=== PATIENT | male | born 1945 | race Caucasian/White ===

== ENCOUNTER 2020-03-15 15:24 | Outpatient (CLI) | payer MEDICARE, OTHER, SELFPAY ==
--- NOTE | 2020-03-15 15:36 | XR_ITS ---
WS: [id number] RIGHT HIP HISTORY: RIGHT HIP PAIN COMPARISON: None available. Right hip: No acute fracture or dislocation. Moderate to severe narrowing of the hip joint. Near bone upon bone along the superior joint line. Sclerosis with cortical irregularity. Subchondral cystic ch anges are noted along the acetabulum. XR/XR hip RT 2-3V wo/w pel* [id number] IMPRESSION: 1. No hip fracture. 2. Moderate to severe RIGHT hip joint osteoarthritis.
== END 2020-03-15 15:25 | disposition home or self-care (01) ==
LOC: RADWPI 15:33
PROVIDERS: Family Provider Family Medicine; PCP Family Medicine; Visit Provider Family Medicine
DX: M16.11 Unilateral primary osteoarthritis, right hip (principal)
CPT/HCPCS: 73502

== ENCOUNTER 2020-05-09 06:50 | Outpatient (CLI) | payer MEDICARE, OTHER, SELFPAY ==
[2020-05-09 07:09] VITALS: BMI 26.6
--- NOTE | 2020-05-09 07:09 | NMCV_ITS ---
NM dung perf SPECT r/s* [id number] Oj Haider Age: 75 Gender: M : 1945 Exam Date: 05/09/2020 07:48 Ordering Phys: Jose Gonzalez MD Technologist: NANCY Zapata Exam Location: [facility] Indications: CAD STRESS TEST Please see separate stress test report in [facility]any for full findings IMAGE PROTOCOL Rest/Stress 1 Lexiscan Day Radiopharmaceutical Dose (mCi) Administration Site Administered by Rest: Tc-99m 10.8 IV NANCY Bolaños Sestamibi Stress:Tc-99m 32.4 IV NANCY Zapata Sestamibi Rest: 05/09/2020 60 Discovery 630 Stress: 05/09/2020 30 Discovery 630 0.4mg Lexiscan. Images obtained in supine and prone position. SPECT RESULTS Technical Quality: Excellent Raw Data Analysis: Normal Image Corrections: No attenuation or motion correction applied Summed Stress Score: 6 Summed Rest Score: 2 Summed Difference Score: 4 PERFUSION FINDINGS Small size perfusion abnormality of mild severity of mid inferolateral and apical lateral wall on rest images with mild reversibility in mid inferolateral wall and apical lateral kang on stress images. FUNCTIONAL RESULTS (calculated via Gated SPECT) Stress Image LV EF (%): 65 Stress EDV (mL):74 TID: 1 Stress ESV (mL):26 FUNCTIONAL FINDINGS: The left ventricle is normal in size. Transient Ischemia Dilatation of 1. There is normal left ventricular systolic function. The left ventricular ejection fraction is normal with a value of 65%. There is normal left ventricular wall thickening. Normal end-diastolic and end-systolic volumes. IMPRESSIONS 1. Small sized reversible perfusion abnormality of moderate severity of mid inferolateral and apical lateral kang. 2. This is suggestive of small area of ischemia in circumflex artery territory. 3. Overall left ventricular systolic function is normal without regional wall motion abnormalities. 4. The left ventricular ejection fraction is normal with a value of 65%. 5. No prior similar studies to compare. Rachel Nicole MD (Electronically Signed) Final Date: 09 May 2020 14:43 S
--- NOTE | 2020-05-09 07:09 | ECG_ITS ---
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 Interpretive Statements NAME OF STUDY: LEXISCAN SESTAMIBI STRESS TEST INDICATION: CAD; ; CAD; , PROCEDURE: At the baseline, the EKG revealed normal sinus rhythm with some nonspecific ST changes. The baseline blood pressure was 158/91 mm Hg with a heart rate of 70 beats/min. Lexiscan was infused over a period of 20 seconds. A total of 0.4 milligrams of Lexiscan was infused. The stress phase was continued for a total of 5 minutes. Heart rate at the end of the stress phase was 81 with a blood pressure was not obtained. The EKG at the peak infusion revealed no significant changes. Sestamibi was injected 20 seconds after the Lexiscan infusion. Blood pressure at the end of the recovery phase was was not obtained with a heart rate of 78 per minute. CONCLUSION: 1. No significant EKG changes with the LexiScan infusion 2. No LexiScan induced chest pain or cardiac arrhythmia 3. Normal blood pressure and heart rate response 4. Sestamibi/sestamibi perfusion scan pending; see separate report. Electronically Signed On 05-13-2020 17:39:45 CDT by Martha Faustin M.D. [email or web address]
[2020-05-09] MEDS: regadenoson 0.4 Mg/5 ml Syringe IVP (08:35)
[2020-05-09 08:54] VITALS: BP 155/85; PULSE 81
== END 2020-05-09 06:51 | disposition home or self-care (01) ==
PROVIDERS: PCP Family Medicine; Visit Provider Family Medicine
DX: Z13.6 Encounter for screening for cardiovascular disorders (principal); I25.10 Atherosclerotic heart disease of native coronary artery without angina pectoris
CPT/HCPCS: 73502; 78452; 93017; A9500; J2785

== ENCOUNTER 2020-05-16 09:07 | Outpatient (CLI) | payer MEDICARE, OTHER, SELFPAY ==
--- NOTE | 2020-05-16 09:11 | USCV_ITS ---
Meliza Oj Age: 75 Gender: M : 1945 Exam Date: 05/16/2020 09:37 Ordering Phys: Jose Gonzalez MD Technologist: Neisha Cotter Exam Location: [facility] [place] Indication: SCREENING FOR ISCHEMIC HEART DX CAD DYSPNEA BP: 130 / 70 HR: 69 Rhythm: Sinus Technical Quality: Adequate MEASUREMENTS (Male / Female) Normal Values 2D ECHO LV Diastolic Diameter PLAX 4.8 cm 4.2 - 5.9 / 3.9 - 5.3 cm LV Systolic Diameter PLAX 3.3 cm LV Chamber Size 2.4 cm IVS Diastolic Thickness 1.2 cm 0.6 - 1.0 / 0.6 - 0.9 cm IVS Systolic Thickness 1.5 cm LVPW Diastolic Thickness 1.1 cm 0.6 - 1.0 / 0.6 - 0.9 cm LVPW Systolic Thickness 2.0 cm RV Chamber Size 2.5 cm LVOT Diameter 2.1 cm LV Ejection Fraction 2D Teich 59.4 % LV Ejection Fraction MOD 2C 58.4 % LV Ejection Fraction 2C AL 60.2 % LA Diameter 3.8 cm LA Width 2.5 cm LA Height 3.7 cm RA Width 2.7 cm RA Height 3.9 cm Aorta at Sinotubular Diameter 3.5 cm M-MODE LV Diastolic Diameter MM 4.4 cm 4.2 - 5.9 / 3.9 - 5.3 cm LV Systolic Diameter MM 3.0 cm LV Ejection Fraction MM Teich 61.4 % IVS Diastolic Thickness MM 1.3 cm 0.6 - 1.0 / 0.6 - 0.9 cm IVS Systolic Thickness MM 1.4 cm LVPW Diastolic Thickness MM 1.1 cm 0.6 - 1.0 / 0.6 - 0.9 cm LVPW Systolic Thickness MM 1.6 cm RV Diastolic Diameter MM 1.6 cm Aortic Annulus Diameter 4.2 cm LA Ao Ratio MM 0.9 MV E Point Septal Separation 0.5 cm DOPPLER AV Peak Velocity 94.0 cm/s LVOT Peak Velocity 81.0 cm/s AV Area Cont Eq vti 3.2 cm squared AV Area Cont Eq pk 2.9 cm squared MV Area PHT 4.2 cm squared Mitral E to A Ratio 0.9 MV E' Velocity 61.0 cm/s TR Peak Velocity 226.5 cm/s TR Peak Gradient 20.5 mmHg TR Mean Velocity 158.2 cm/s TR Mean Gradient 12.1 mmHg TR Velocity Time Integral 74.5 cm TV Peak E Velocity 89.0 cm/s Right Atrial Pressure 3.0 mmHg Pulmonary Artery Systolic Pressu 23.5 mmHg PV Peak Velocity 55.0 cm/s RV Acceleration Time 0.1 s RV Ejection Time 0.4 s RV AcT/ET 0.4 FINDINGS Left Ventricle Normal left ventricular size and systolic function with no regional wall motion abnormalities. LVEF is 55 to 60%. Mild LVH is present. Grade 1 diastolic dysfunction is noted. Right Ventricle The right ventricle is normal in size and function. Right Atrium The right atrium is normal in size. Left Atrium The left atrium is normal in size. Mitral Valve Structurally normal mitral valve without significant stenosis or prolapse. There is no mitral regurgitation. Aortic Valve Structurally normal aortic valve without significant sclerosis or stenosis. There is mild aortic regurgitation. Tricuspid Valve Structurally normal tricuspid valve without significant stenosis. Mild tricuspid regurgitation is noted. RVSP is 20 to 25 mmHg. Pulmonic Valve Structurally normal pulmonic valve without significant stenosis. There is trace pulmonic regurgitation. Pericardium Normal pericardium without effusion. Aorta Borderline dilated aortic root CONCLUSIONS LV systolic function is normal with EF of 55 to 60%. Grade 1 diastolic dysfunction. Mild aortic regurgitation, mild tricuspid regurgitation and trace pulmonic regurgitation noted. Normal RVSP of 20 to 25 mmHg Juanito Alvarez MD (Electronically Signed) Final Date: 16 May 2020 15:50 S
== END 2020-05-16 09:08 | disposition home or self-care (01) ==
LOC: US 09:08
PROVIDERS: PCP Family Medicine; Visit Provider Family Medicine
DX: Z13.6 Encounter for screening for cardiovascular disorders (principal); M25.551 Pain in right hip; R06.00 Dyspnea, unspecified; I35.1 Nonrheumatic aortic (valve) insufficiency; I07.1 Rheumatic tricuspid insufficiency
CPT/HCPCS: 93306

== ENCOUNTER 2020-07-26 06:00 | Outpatient (RCR) | payer MEDICARE, OTHER, SELFPAY | END 2020-08-18 23:59 | disposition home or self-care (01) | LOC: SPT 06:00 | PROVIDERS: PCP Family Medicine; Referring Provider Orthopaedic Surgery; Visit Provider Orthopaedic Surgery | DX: Z47.1 Aftercare following joint replacement surgery (principal); Z96.641 Presence of right artificial hip joint | CPT/HCPCS: 97161 ==

== ENCOUNTER 2021-03-27 07:52 | Outpatient (CLI) | payer MEDICARE, OTHER, SELFPAY ==
--- NOTE | 2021-03-27 | MR_ITS ---
WS: [id number] MR VENOGRAPHY WITHOUT GADOLINIUM ENHANCEMENT. INDICATION: Pulsatile tinnitus TECHNIQUE: [id number] MR venogram. Into the projection images. FINDINGS: Normal sagittal sinus. Transverse sinuses are normal. Normal sigmoid sinuses. Normal straig ht sinus and internal cerebral veins. No evidence of dural sinus thrombosis. No other significant fin dings. MR/[place] [id number] IMPRESSION: Normal MR venogram
--- NOTE | 2021-03-27 07:58 | MR_ITS ---
WS: [id number] MRA HEAD TECHNIQUE: Axial 3-D TOF images obtained with axial images and axial, sagittal, and coronal 2-D refor matted images. CLINICAL INFORMATION: PULSATILE TINNITUS LEFT EAR COMPARISON: None. FINDINGS: Distal vertebral arteries are patent. Basilar artery is patent. Normal vascularity to the WATERSHED COORDINATOR territo ry bilaterally. Both ICAs are patent the skull base. Small A1 segments. Patent anterior communicating artery. Normal vascularity to the MONAE and MCA territories bilaterally. No evidence of high-grade proximal stenosis o r aneurysm. Normal petrous and cavernous carotid ICA segments. Patent right posterior communicating a rtery. MR/MR angio head wo con [id number] IMPRESSION: Normal intracranial MRA.
--- NOTE | 2021-03-27 09:11 | CT_ITS ---
WS: [id number] CT TEMPORAL BONES WITHOUT CONTRAST HISTORY: PULSATILE TINNITUS, LEFT EAR TECHNIQUE: Axial 1.25 mm imaging is performed through the temporal bones. High resolution 0.63 mm ref ormats were then submitted in axial, coronal and sagittal planes. DLP: 619.[address] scans at [facility] use at least one of these dose optimization techniques: automat ed exposure control; mA and/or kV adjustment per patient size (includes targeted exams where dose is matched to clinical indication); or iterative reconstruction. COMPARISON: None available. Expansile soft tissue mass is suspected along the LEFT petrous apex. There is marked thinning and rem odeling of the bone. There is partial dehiscence of the bony cortex. The soft tissue abnormality sona ures about 1.5 x 0.9 cm and extends to abut the posterior surface of the carotid artery. There is deh iscence and thinning of the bony wall of the posterior LEFT carotid. This is asymmetric to the RIGHT petrous apex. There is mild bulging of the soft tissue mass into the aerated petrous ridge. No abnormality is noted within the mastoid air cells or surrounding the inner ear ossicles. There is no increased soft tissue along the internal or external auditory canals. Atherosclerotic calcifications are noted within the cavernous and supraclinoid carotid arteries. No induration or displacement of the parapharyngeal fat. External and internal auditory canals are ne gative. CT/CT temporal bone wo con* [id number] IMPRESSION: 1. Expansile soft tissue mass centered along the LEFT petrous apex with dehisc ence, expansion and thinning of the bone. Mass measures 1.5 x 0.9 cm. Recommend follow-up imaging by MRI brain with and without contrast. Favor this is most l ikely a cholesteatoma. Differential would include petrous apex mucocele. 2. Inner ear ossicles are negative.
== END 2021-03-27 07:53 | disposition home or self-care (01) ==
LOC: RADSHAW 07:56
PROVIDERS: PCP Family Medicine; Visit Provider Specialist
DX: H93.A2 Pulsatile tinnitus, left ear (principal); R22.0 Localized swelling, mass and lump, head
CPT/HCPCS: 70480; 70544

== ENCOUNTER 2021-04-04 09:27 | Outpatient (CLI) | payer MEDICARE, OTHER, SELFPAY ==
--- NOTE | 2021-04-04 09:35 | USCV_ITS ---
Meliza Oj Age: 75 Gender: M : 1945 Exam Date: 04/04/2021 09:54 Ordering Phys: Jose Gonzalez MD Technologist: Steffi Pearson Exam Location: [facility] [place] Indication: BRUIT Risk Factors: Previous Vascular Surgery: Right Brachial BP: / Left Brachial BP: / Right Left Velocity (cm/s) Spectral Plaque Velocity (cm/s) Spectral Plaque Syst/Diast Broadening Syst/Diast Broadening 105.70/11.60 Prox CCA 74.90 / 14.80 69.10/ 14.80 Mid CCA 77.70 / 14.80 46.50/ 12.70 Distal CCA 66.80 / 18.60 398.50/130.40 Prox ICA 388.40/ 133.60 119.60/51.30 Mid ICA 165.50/ 34.40 77.70/ 20.20 Distal ICA 110.00/ 31.40 84.70 ECA 87.80 3.77 ICA/CCA 5.00 Antegrade Vertebral Antegrade 63.70/ 21.00 cm/s 26.20/ 26.20 cm/s Tri Subclavian Tri 166.2 120.1 0 0 FINDINGS Comparison: none available. Significant elevation of systolic and diastolic velocities in the ICA's. Abnormal waveforms and ratios. Extensive plaque with tortuous vessels. CONCLUSIONS Right ICA stenosis 70-99%. Left ICA stenosis 70-99%. Report called at time of exam to ordering physician. Dr. Maite Posada DO (Electronically Signed) Final Date: 04 April 2021 10:19 S
== END 2021-04-04 09:28 | disposition home or self-care (01) ==
LOC: US 09:31
PROVIDERS: PCP Family Medicine; Visit Provider Family Medicine
DX: R09.89 Other specified symptoms and signs involving the circulatory and respiratory systems (principal); I65.23 Occlusion and stenosis of bilateral carotid arteries
CPT/HCPCS: 93880

== ENCOUNTER 2021-04-07 08:11 | Outpatient (CLI) | payer MEDICARE, OTHER, SELFPAY ==
--- NOTE | 2021-04-07 | CT_ITS ---
WS: [id number] CT scan of the carotid arteries of the neck. Additional two-dimensional coronal and sagittal reconstr uction was performed. MIP images were also performed. 04/07/2021 Clinical Data: CAROTID STENOSIS Comparison: Bilateral carotid Doppler ultrasound, 04/04/2021 DLP: 996.[address] scans at [facility] use at least one of these dose optimization techniques: automat ed exposure control; mA and/or kV adjustment per patient size (includes targeted exams where dose is matched to clinical indication); or iterative reconstruction. Findings: The right carotid artery bifurcates normally into the internal and external carotid arteries and ther e is significant calcification at the bifurcation. There is stenosis of 87% on the right. The left common carotid artery bifurcates into the internal and external carotid arteries and there i s a significant stenosis of 78%. The vertebral arteries are normal and equivalent in size. The intracerebral circulation is only partly seen but it shows no obvious abnormalities. The soft tissues of neck show no lymphadenopathy. There is no prevertebral soft tissue swelling. The oropharynx, hypopharynx and proximal trachea are not remarkable. The larynx is symmetric. The cervica l spine shows osteoarthritis and multiple disc level narrowing. No compression fractures are seen. Th e intraorbital contents, internal auditory canals, sella turcica, paranasal sinuses and mastoid air c ells show no abnormalities. CT/CT angio neck [id number] Impression: 1. Stenosis of 87% of the right internal carotid artery origin. 2. Stenosis of 78% of the origin of the left internal carotid artery.
[2021-04-07] MEDS: iodixanol 320 mg/mL 100mL Btl IV (08:52)
== END 2021-04-07 08:12 | disposition home or self-care (01) ==
PROVIDERS: PCP Family Medicine; Visit Provider Family Medicine
DX: I65.23 Occlusion and stenosis of bilateral carotid arteries (principal)
CPT/HCPCS: 70498; Q9967

== ENCOUNTER 2021-08-16 15:37 | Outpatient (CLI) | payer MEDICARE, OTHER, SELFPAY ==
--- NOTE | 2021-08-16 | CTR_ITS ---
PROCEDURE INFORMATION: Exam: CTA Chest With Contrast Exam date and time: 08/16/2021 4:12 PM Age: 76 years old Clinical indication: Shortness of breath; Additional info: R/O pe TECHNIQUE: Imaging protocol: Computed tomographic angiography of the chest with contrast. 3D rendering (Not supervised by radiologist): MIP and/or 3D reconstructed images were created by the technologist. Radiation optimization: All CT scans at this facility use at least one of these dose optimization techniques: automated exposure control; mA and/or kV adjustment per patient size (includes targeted exams where dose is matched to clinical indication); or iterative reconstruction. Contrast material: OMNI 350; Contrast volume: 71 ml; Contrast route: INTRAVENOUS (IV); COMPARISON: CR Chest 2 views* [id number] 01/17/2017 12:42 PM RADIATION DOSE METRICS: Total DLP (mGy-cm): 585.77 FINDINGS: Pulmonary arteries: No pulmonary embolus or aortic dissection. Aorta: Calcification of the thoracic aorta and/or great vessels consistent with atherosclerotic vessel disease. Other arteries: Direct origin of the left vertebral artery from the aortic arch which is a normal variant seen in 1% of the population. Lungs: Interstitial opacities in the anterior mid lung davey bilaterally consistent with interstitial pneumonitis versus fibrosis. Mild centrilobular emphysema. Pleural spaces: Unremarkable. No pneumothorax. No pleural effusion. Heart: Unremarkable. No cardiomegaly. No pericardial effusion. Lymph nodes: Borderline mediastinal adenopathy which may be reactive. Calcified right hilar nodes and/or mediastinal nodes and/or lung granulomas consistent with old granulomatous disease. Gallbladder and bile ducts: Contracted gallbladder. Bones/joints: Moderate thoracic spondylosis. Mild thoracic spondylosis. Soft tissues: Unremarkable. CT/CT angio chest PE protcl [id number] IMPRESSION: 1. Interstitial opacities in the anterior mid lung davey bilaterally consistent with interstitial pneumonitis versus fibrosis. 2. Borderline mediastinal adenopathy which may be reactive. 3. No pulmonary embolus or aortic dissection.
== END 2021-08-16 15:38 | disposition home or self-care (01) ==
LOC: RAD 15:40
PROVIDERS: PCP Family Medicine; Visit Provider Family Medicine
DX: R07.9 Chest pain, unspecified (principal); R06.00 Dyspnea, unspecified
CPT/HCPCS: 71275; Q9967

== ENCOUNTER → 2021-08-29 16:28 | Outpatient (BNVA) | payer MEDICARE, OTHER, SELFPAY | PROVIDERS: PCP Family Medicine; Visit Provider Surgery Vascular Surgery | DX: Z01.812 Encounter for preprocedural laboratory examination (principal); Z20.822 Contact with and (suspected) exposure to COVID-19 | CPT/HCPCS: 87635 ==

== ENCOUNTER → 2021-11-08 11:37 | Outpatient (BNVA) | payer MEDICARE, OTHER, SELFPAY | PROVIDERS: PCP Family Medicine; Visit Provider Internal Medicine | DX: R00.0 Tachycardia, unspecified (principal); I49.3 Ventricular premature depolarization; I49.1 Atrial premature depolarization | CPT/HCPCS: 93225 ==

== ENCOUNTER 2022-01-03 07:46 | Outpatient (CLI) | payer MEDICARE, OTHER, SELFPAY ==
[2022-01-03 08:12] VITALS: BMI 27.4
--- NOTE | 2022-01-03 08:12 | ECG_ITS ---
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 Interpretive Statements NAME OF STUDY: EXERCISE SESTAMIBI STRESS TEST INDICATION: Chest Pain, Central; Dyspnea on Exertion Baseline blood pressure of 157/105 mm Hg, heart rate 81 beats per minute. EKG showed normal sinus rhythm, normal axis with poor anterior R wave progression. The patient exercised for 7 minutes 12 seconds on a standard Omar protocol. Patient attained a maximum heart rate of 142 beats per minute(99% of the maximum predicted heart rate) with a blood pressure at the peak exercise of 175/98 mm Hg. The EKG at the peak exercise revealed sinus tachycardia with half to [address] depression in lateral leads. Patient did not have any chest pain or any significant arrhythmis with the exercise During the recovery phase, ST depression and T wave inversion is noted in lead I and aVL. Blood pressure at the end of the recovery phase was 170/98 mm Hg with a heart rate of 85 beats per minute and oxygen saturation 97%. CONCLUSION: 1. Equivocal EKG response to treadmill exercise. 2. No exercise-induced chest pain or cardiac arrhythmia. 3. Excellent exercise tolerance, attained a maximum of 10.2 METs. Maximum VO2 of 35.7 mL/kg/min. 4. Baseline hypertension with normal response to exercise. 5. Perfusion scan will be documented separately. Electronically Signed On 01-08-2022 17:33:44 CDT by Rachel Nicole M.D. [id number]
--- NOTE | 2022-01-03 08:13 | NMCV_ITS ---
NM dung perf SPECT r/s* [id number] Oj Haider Age: 76 Gender: M : 1945 Exam Date: 01/03/2022 09:12 Ordering Phys: Jose Gonzalez MD Technologist: NANCY Zapata Exam Location: [facility] Indications: CHEST PAIN, DYSPNEA STRESS TEST Please see separate stress test report in [facility]any for full findings IMAGE PROTOCOL Rest/Stress 1 Exercise Day Radiopharmaceutical Dose (mCi) Administration Site Administered by Rest: Tc-99m 10.8 IV NANCY Bolaños Sestamibi Stress:Tc-99m 32.7 IV NANCY Bolaños Sestamibi Rest: 03-Jan-2022 60 Discovery 630 Stress: 03-Jan-2022 15 Discovery 630 Radiopharmaceutical was injected at 95 % maximum heart rate. Images obtained in supine and prone position. SPECT RESULTS Technical Quality: Excellent Raw Data Analysis: Normal Image Corrections: No attenuation or motion correction applied Summed Stress Score: 8 Summed Rest Score: 1 Summed Difference Score: 7 PERFUSION FINDINGS Small sized reversible perfusion abnormality of mild severity of basal inferolateral, mid to apical lateral kang on stress images. FUNCTIONAL RESULTS (calculated via Gated SPECT) Stress Image LV EF (%): 74 Stress EDV (mL):77 TID: 0.96 Stress ESV (mL):20 FUNCTIONAL FINDINGS: The left ventricle is normal in size. Transient Ischemia Dilatation of 0.96. There is normal left ventricular systolic function. The left ventricular ejection fraction is normal with a value of 74%. There is normal left ventricular wall thickening with no regional wall abnormality. IMPRESSIONS 1. Small sized reversible perfusion abnormality of mild severity of basal inferolateral, mid to apical lateral kang. 2. This may represent small area of ischemia in circumflex artery territory. 3. Overall left ventricular systolic function is normal without regional wall motion abnormalities, LVEF=74%. 4. EKG portion of the study will be reported separately. 5. No significant change when compared to previous study dated 05/09/2020. Rachel Nicole MD (Electronically Signed) Final Date: 08 Jan 2022 08:07 S
[2022-01-03 11:03] VITALS: BP 170/98; PULSE 82
== END 2022-01-03 07:47 | disposition home or self-care (01) ==
LOC: CDL 07:49
PROVIDERS: PCP Family Medicine; Visit Provider Family Medicine
DX: R07.9 Chest pain, unspecified (principal); R06.00 Dyspnea, unspecified
CPT/HCPCS: 78452; 93017; A9500

== ENCOUNTER 2022-01-29 09:54 | Outpatient (CLI) | payer MEDICARE, OTHER, SELFPAY ==
--- NOTE | 2022-01-29 10:21 | CT_ITS ---
WS: [id number] CT ABDOMEN AND PELVIS WITH CONTRAST HISTORY: ACUTE DIVERTICULITIS TECHNIQUE: Imaging performed of the abdomen and pelvis with IV contrast. Single phase imaging of the abdomen. Coronal and sagittal reformats are submitted. All CT scans at [facility] use at [address] [facility] one of these dose optimization techniques: automated exposure control; mA and/or kV adjustment per patient size (includes targeted exams where dose is matched to clinical indication); or iterative re construction. IV CONTRAST: Omnipaque 300; 95 mL IV. Oral contrast: Yes. DLP: 1135.15 mGy.cm COMPARISON: None available. Lower thorax: Benign granuloma RIGHT lower lobe. There is an interstitial thickening which is chronic . Normal size heart. No effusion. Small hiatal hernia. Liver/biliary system: Normal size liver with no bile duct dilatation. There is a 2 small to character ize 3 mm hypodensity in the periphery of the superior RIGHT liver. Gallbladder: Normal. No gallstones or wall thickening. No pericholecystic fluid. Pancreas: Normal size pancreas and pancreatic duct. No adjacent inflammation. Spleen: Normal size spleen. No mass or infarct. Adrenal glands: Normal. Right kidney: Normal size kidney. There are several low-attenuation cortical lesions within the kidne y. The largest measures 18 mm. The remaining are too small to characterize. There are nonobstructing very tiny calcifications in the renal pelvis. Left kidney: Normal size kidney. 21 mm cyst in the mid kidney. Small nonobstructing calcifications. Aorta: Mild atherosclerosis with no aneurysm. Lymphadenopathy: None. Free fluid: None. GI tract: Nondistended stomach. No small bowel obstruction. The appendix is normal. Mild diffuse cons tipation. Numerous diverticula throughout the colon. Significant diverticular disease involving the s igmoid colon. No evidence for acute diverticulitis. Abdominal wall: Unremarkable abdominal wall. No hernia. Pelvis: Moderately well distended urinary bladder. Mild wall thickening of the bladder is diffuse. Pr ostate gland is very mildly prominent and heterogeneous. No adenopathy or inflammation in the pelvis. Patent bilateral inguinal canals containing fat only. Bones: Prior RIGHT hip arthroplasty. Moderate degenerative disc disease throughout the lumbar spine w ith facet joint narrowing. No fracture. CT/CT abdomen pelvis w con* [id number] IMPRESSION: 1. Extensive diverticulosis within the distal colon but no evidence for acute diverticulitis. 2. No abscess or free fluid in the pelvis. 3. Normal appendix. 4. Bilateral renal cysts and renal calcifications which are nonobstructing. 5. No GI tract obstruction. 6. Moderate facet joint arthritis and disc disease in the lumbar spine.
[2022-01-29 12:25] LABS: Blood Urea Nitrogen 10 mg/dL (8-23)
[2022-01-29] MEDS: iohexol 300 mg/mL 100 mL Btl IV (12:40)
== END 2022-01-29 09:55 | disposition home or self-care (01) ==
LOC: RAD 10:02
PROVIDERS: PCP Family Medicine; Visit Provider Family Medicine
DX: K57.30 Diverticulosis of large intestine without perforation or abscess without bleeding (principal); H91.93 Unspecified hearing loss, bilateral; H93.13 Tinnitus, bilateral
CPT/HCPCS: 74177; 82565; 84520; 99213

== ENCOUNTER → 2022-02-21 12:22 | Outpatient (BNVA) | payer MEDICARE, OTHER, SELFPAY | PROVIDERS: PCP Family Medicine; Visit Provider Internal Medicine | DX: I77.9 Disorder of arteries and arterioles, unspecified (principal); R94.39 Abnormal result of other cardiovascular function study | CPT/HCPCS: 99213; 99214 ==

== ENCOUNTER 2022-05-22 14:20 | Outpatient (CLI) | payer MEDICARE, OTHER, SELFPAY ==
--- NOTE | 2022-05-22 14:15 | USCV_ITS ---
Oj Haider Age: 77 Gender: M : 1945 Exam Date: 05/22/2022 14:45 Ordering Phys: Juanito Alvarez M.D ([email or web address]) Technologist: Exam Location: [facility] [place] Indication: sob BP: / HR: 82 Rhythm: Sinus Technical Quality: Adequate MEASUREMENTS (Male / Female) Normal Values 2D ECHO LV Diastolic Diameter PLAX 3.6 cm 4.2 - 5.9 / 3.9 - 5.3 cm LV Systolic Diameter PLAX 2.1 cm IVS Diastolic Thickness 1.3 cm 0.6 - 1.0 / 0.6 - 0.9 cm IVS Systolic Thickness 1.8 cm LVPW Diastolic Thickness 1.4 cm 0.6 - 1.0 / 0.6 - 0.9 cm LVPW Systolic Thickness 1.5 cm LVOT Diameter 2.0 cm LV Ejection Fraction 2D Teich 75.3 % LV Ejection Fraction MOD 2C 70.8 % LV Ejection Fraction 2C AL 72.4 % LA Diameter 4.9 cm Aorta at Sinotubular Diameter 3.1 cm IVC Diameter 1.8 cm M-MODE Aortic Annulus Diameter 3.7 cm LA Ao Ratio MM 1.4 MV E Point Septal Separation 0.4 cm DOPPLER AV Peak Velocity 109.0 cm/s LVOT Peak Velocity 89.0 cm/s AV Area Cont Eq vti 3.2 cm squared AV Area Cont Eq pk 2.7 cm squared MV Area PHT 4.2 cm squared Mitral E to A Ratio 0.8 MV E' Velocity 36.5 cm/s Mitral E to MV E' Ratio 11.4 Mitral E to LV E' Lateral Ratio 10.4 Mitral E to LV E' Septal Ratio 12.9 TR Peak Velocity 304.3 cm/s TR Peak Gradient 37.0 mmHg TV Peak E Velocity 100.0 cm/s Right Atrial Pressure 3.0 mmHg Pulmonary Artery Systolic Pressu 40.0 mmHg RV Acceleration Time 0.1 s FINDINGS Left Ventricle Normal left ventricular size. LV systolic function is normal with EF of 55-60%. No regional wall motion abnormalities. Grade 1 diastolic dysfunction Right Ventricle The right ventricle is normal in size and function. Right Atrium The right atrium is normal in size. Left Atrium The left atrium is normal in size. Mitral Valve Structurally normal mitral valve without significant stenosis or prolapse. There is no mitral regurgitation. Aortic Valve Structurally normal aortic valve without significant sclerosis or stenosis. There is mild aortic regurgitation. Tricuspid Valve Mild tricuspid regurgitation. RVSP is 40 to 45 mmHg. This is consistent with mild pulmonary hypertension Pulmonic Valve Not well-visualized Pericardium Normal pericardium without effusion. Aorta Normal ascending aorta dimension. IVC The inferior vena cava appears normal. CONCLUSIONS LV systolic function is normal with EF of 55 to 60%. Grade 1 diastolic dysfunction Mild aortic regurgitation Mild tricuspid regurgitation Mild pulmonary hypertension. Compared to prior echocardiogram from 2019, patient now has mild pulmonary hypertension. Juanito Alvarez MD (Electronically Signed) Final Date: 27 May 2022 12:32 S
== END 2022-05-22 14:21 | disposition home or self-care (01) ==
LOC: RAD 14:20
PROVIDERS: PCP Family Medicine; Visit Provider Internal Medicine
DX: I25.10 Atherosclerotic heart disease of native coronary artery without angina pectoris (principal); I08.2 Rheumatic disorders of both aortic and tricuspid valves; I27.20 Pulmonary hypertension, unspecified
CPT/HCPCS: 93306

== ENCOUNTER 2022-07-03 15:06 | Outpatient (CLI) | payer MEDICARE, OTHER, SELFPAY ==
--- NOTE | 2022-07-03 14:45 | MR_ITS ---
WS: [id number] MRI LEFT SHOULDER HISTORY: left rotator cuff tear COMPARISON: None available. TECHNIQUE: Multiplanar sequences of the shoulder joint are submitted. Moderate AC joint arthritis. Loss of the joint space with fluid along the AC ligament. Osteophytic ri dging around the AC joint encroaching upon the supraspinatus muscle and tendon. Moderate amount of fl uid in the subacromial and subdeltoid bursa. Moderate subacromial impingement by osteophyte disease a nd elevated humeral head. No os acromion. Biceps tendon is not visualized in the bicipital groove. Mildly high riding humeral head. There is complete tear of the supraspinatus tendon with retraction t o the medial humeral head. The very distal tendon is enlarged with mixed signal and fraying. There is a large fluid gap. Insertion site tear of the infraspinatus tendon with fluid extending along the te ndon sheath through the muscle body. There is also tendinopathy. The subscapularis tendon is surround ed by fluid and is wavy. There is significant narrowing of the coracohumeral interval. Suspicious for subscapularis tendon tear also. Moderate amount of fluid surrounding the humeral head. Loss of the n ormal cartilage and cortex of the humeral head. No labral tear appreciated. Mild atrophy supraspinatus muscle. MR/MR shoulder LT wo con* [id number] IMPRESSION: 1. Moderate AC joint arthritis with significant encroachment upon the supraspi natus tendon and muscle. 2. Complete tear with retraction supraspinatus tendon. Tendon is retracted to the medial humeral head but the distal 2 cm of the supraspinatus tendon is fray ed and edematous. 3. Additional partial infraspinatus tendon tear with fluid extending along the tendon through the muscle body. 4. Wavy subscapularis tendon. The tendon is a very small caliber and I suspect there is probably a tear. Tear is difficult to visualize. There is a large brigido unt of fluid surrounding the tendon. 5. Mildly elevated humeral head with degenerative osteoarthritic changes at th e glenohumeral joint and humeral head. 6. Empty bicipital groove. Biceps tendon is torn or subluxed.
== END 2022-07-03 15:07 | disposition home or self-care (01) ==
LOC: RAD 15:06
PROVIDERS: PCP Family Medicine; Visit Provider Family Medicine
DX: M75.102 Unspecified rotator cuff tear or rupture of left shoulder, not specified as traumatic (principal); X58.XXXA Exposure to other specified factors, initial encounter; M13.812 Other specified arthritis, left shoulder
CPT/HCPCS: 73221

== ENCOUNTER 2022-08-24 09:30 | Outpatient (CLI) | payer MEDICARE, OTHER, SELFPAY ==
--- NOTE | 2022-08-24 09:30 | USCV_ITS ---
Oj Haider Age: 77 Gender: M : 1945 Exam Date: 08/24/2022 09:35 Ordering Phys: Juanito Alvarez M.D ([email or web address]) Technologist: CT Exam Location: [facility] [place] Indication: bilateral cea's Risk Factors: Previous Vascular Surgery: cea's Right Brachial BP: / Left Brachial BP: / Right Left Velocity (cm/s) Spectral Plaque Velocity (cm/s) Spectral Plaque Syst/Diast Broadening Syst/Diast Broadening 98.90/ 15.30 Prox CCA 55.50 / 15.50 71.10/ 12.00 Mid CCA 46.50 / 15.50 81.20/ 17.00 Distal CCA 53.50 / 15.60 74.20/ 15.60 Prox ICA 44.90 / 15.00 67.70/ 15.70 Mid ICA 58.00 / 15.60 65.90/ 16.30 Distal ICA 62.70 / 17.60 90.20 ECA 365.00 0.75 ICA/CCA 1.13 Antegrade Vertebral Antegrade 44.40/ 13.70 cm/s 49.60/ 10.30 cm/s Tri Subclavian Bi 142.0 158.8 0 0 FINDINGS no stenosis CONCLUSIONS Bilateral CEA, no recurrent stenosis. Right ICA stenosis <50%. Left ICA stenosis <50%. Normal antegrade Doppler flow noted in the right vertebral artery. Normal antegrade Doppler flow noted in the left vertebral artery. Star Hawk MD (Electronically Signed) Final Date: 24 August 2022 10:35 S
== END 2022-08-24 09:31 | disposition home or self-care (01) ==
LOC: RAD 09:30
PROVIDERS: PCP Family Medicine; Visit Provider Internal Medicine
DX: I65.23 Occlusion and stenosis of bilateral carotid arteries (principal)
CPT/HCPCS: 93880

== ENCOUNTER → 2022-11-21 12:52 | Outpatient (BNVA) | payer MEDICARE, OTHER, SELFPAY | PROVIDERS: PCP Family Medicine; Visit Provider Internal Medicine | DX: R94.39 Abnormal result of other cardiovascular function study (principal); I77.9 Disorder of arteries and arterioles, unspecified; Z79.82 Long term (current) use of aspirin | CPT/HCPCS: 99214 ==

== ENCOUNTER 2023-05-16 08:08 | Outpatient (CLI) | payer MEDICARE, OTHER, SELFPAY ==
--- NOTE | 2023-05-16 08:30 | CT_ITS ---
WS: [id number] CT chest wo con [id number] HISTORY: cough TECHNIQUE: Axial imaging performed through the thorax. Coronal and sagittal reformats are submitted. All CT scans at [facility] use at least one of these dose optimization techniques: automated exposure control; mA and/or kV adjustment per patient size (includes targeted exams where dose is mat ched to clinical indication); or iterative reconstruction. CONTRAST: None DLP: 448.31 mGy.cm COMPARISON: 01/29/2022 CT abdomen, chest CT 08/16/2021 Lungs and central airway: Normal lung volumes. No definite decrease in lung volumes. There is periphe ral interstitial and interlobar thickening. This involves predominantly the anterior upper lungs and slightly more prominent at the lung bases. No mass or nodule. There is no definite honeycombing ident ified and no traction bronchiectasis. No pulmonary cysts. There is subpleural involvement. Very simil ar to the prior examination from 08/16/2021. Pleura: Normal. No pleural effusion. Heart and pericardium: Mild cardiomegaly. No effusion. Mediastinum and nick: There are small mediastinal and hilar lymph nodes. No adenopathy. Vessels: Mild atherosclerosis aorta. No aneurysm. Normal size pulmonary artery. Chest wall and lower neck: No soft tissue masses. Upper abdomen: Incompletely visualized are bilateral low-attenuation masses in the upper poles of eac h kidney. These were noted to be cysts on a prior CT from 01/29/2022. No adrenal mass. Negative gallbl adder. Osseous structures: Prior LEFT shoulder replacement hardware. No osteoblastic or osteolytic bone dise ase. Disc bases are narrowed throughout the thoracic spine. IMPRESSION: 1. No acute pneumonia or pulmonary congestion. 2. Mild pulmonary fibrotic changes without honeycombing or traction bronchiectasis. Indeterminate for UIP. 3. No adenopathy. 4. Normal size heart.
== END 2023-05-16 08:09 | disposition home or self-care (01) ==
PROVIDERS: PCP Family Medicine; Visit Provider Family Medicine
DX: J84.10 Pulmonary fibrosis, unspecified (principal)
CPT/HCPCS: 71250

== ENCOUNTER → 2023-05-27 10:27 | Outpatient (BNVA) | payer MEDICARE, OTHER, SELFPAY | PROVIDERS: PCP Family Medicine; Visit Provider Family Medicine | DX: I10 Essential (primary) hypertension (principal); Z00.00 Encounter for general adult medical examination without abnormal findings; R35.0 Frequency of micturition | CPT/HCPCS: 80053; 80061; 84153; 85025 ==

== ENCOUNTER → 2023-10-08 09:17 | Outpatient (BNVA) | payer MEDICARE, OTHER, SELFPAY | PROVIDERS: PCP Family Medicine; Visit Provider Family Medicine | DX: I10 Essential (primary) hypertension (principal); R97.20 Elevated prostate specific antigen [PSA]; I77.9 Disorder of arteries and arterioles, unspecified | CPT/HCPCS: 80053; 80061; 84153 ==

== ENCOUNTER 2023-10-28 03:27 | Inpatient (IN) | payer MEDICARE, OTHER, SELFPAY ==
[2023-10-28] VITALS (107 sets, daily range): BP systolic 98–175; BP diastolic 55–125; PULSE 67–108; RESP 14–41; TEMP 35.6–36.4; O2SAT 84–100; BMI 27.4; BMI 25.4
--- NOTE | 2023-10-28 03:29 | ECG_ITS ---
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 Measurements Intervals [place] Rate: 73 P: 27 AL: 167 QRS: -18 QRSD: 87 T: 98 QT: 374 QTc: 414 Interpretive Statements SINUS RHYTHM NONSPECIFIC T-WAVE ABNORMALITY No previous ECG available for comparison Electronically Signed On 10-28-2023 14:19:42 CDT by Rickey Cormier M.D. [id number]
--- NOTE | 2023-10-28 03:29 | XRR_ITS ---
PROCEDURE INFORMATION: Exam: XR Chest Exam date and time: 10/28/2023 3:39 AM Age: 78 years old Clinical indication: Shortness of breath; Prior surgery; Surgery date: 6+ months; Surgery type: Rotator cuff. Total shoulder; Patient HX: C/O SOB TECHNIQUE: Imaging protocol: Radiologic exam of the chest. Views: 1 view. COMPARISON: CT chest con [id number] 05/16/2023 8:20 AM FINDINGS: Lungs: Faint hazy opacity in the left lung base may represent infiltrate, atelectasis, and/or small pleural effusion. Pleural spaces: No pneumothorax. Heart/Mediastinum: Cardiomediastinal silhouette is midline and normal in size. Bones/joints: Status post left shoulder arthroplasty. Status post right shoulder tendon repair. XR/XR chest 1V portable [id number] IMPRESSION: Faint hazy opacity in the left lung base may represent infiltrate, atelectasis, and/or small pleural effusion.
--- NOTE | 2023-10-28 03:40 | ED_ITS ---
HPI - GI Bleed 2 General: Chief complaint: GI Bleed Stated complaint: SOB, Rectal Bleeding Time Seen by Provider: 10/28/23 03:29 Source: patient Mode of arrival: ambulatory Limitations: no limitations History of Present Illness: 78-year-old male states he has a history of diverticulosis he states over the last 3 days he has been having bright red blood and's been mucousy in his stools. He denies any abdominal pain he has had no hypotension or lightheadedness. He is not on any blood thinners he denies any worsening improving factors he states he had a chronic cough as well but denies any shortness of breath or chest pain Associated symptoms: Denies abdominal pain, chills, fever(s), headache(s), nausea, rash or vomiting Review of Systems 2 Const: Denies: fever(s), chills, body aches or change in appetite ENMT: Denies: throat pain or dental pain Card: Denies: chest pain Resp: Reports: non-productive cough; Denies: dyspnea GI: Reports: hematochezia; Denies: abdominal pain, nausea, vomiting or diarrhea Musc: Denies: neck pain or back pain Skin/Breast: Denies: rash Neuro: Denies: headache(s) PFSH ED 2 PFSH: Medical History Diverticulosis Hypertension BPH (benign prostatic hyperplasia) Primary osteoarthritis of right hip Surgical History History of left shoulder replacement H/O repair of rotator cuff History of hip replacement Family History Denies family history of Diabetes CAD (coronary artery disease) Hypertension Social History Smoking and tobacco/nicotine status: never used tobacco/nicotine Alcohol intake: current Alcohol intake frequency: holidays/special occasions only Alcohol type: beer Substance/Drug Use: never Physical Exam 2 Const: COMMON NORMALS: no acute distress, patient oriented x3 and healthy appearing HENMT: COMMON NORMALS: normocephalic and atraumatic HEAD & SCALP: n ormocephalic and atraumatic Neck/C-Spine: COMMON NORMALS: full ROM and supple Chest: COMMONS NORMALS: normal inspection of the chest Resp: COMMON NORMALS: normal respiratory effort, No retractions, No use of accessory muscles and clear to auscultation bilaterally AUSCULTATION: clear to auscultation bilaterally Cardio: COMMON NORMALS: regular rate, regular rhythm and No murmurs present (Cardio) RATE: regular rate RHYTHM: regular rhythm GI: COMMON NORMALS: Normal to inspection, nondistended, normoactive bowel sounds present, Soft to palpation, non-tender and no masses PALPATION: Yes Soft to palpation OTHER: Rectal exam showed a very small amount of bright red blood Extremity: COMMON NORMALS: normal to inspection and full ROM Neuro: COMMON NORMALS: patient oriented x3, moves all extremities and no focal motor deficits Psych: COMMON NORMALS: mental status grossly normal, Normal thought process present and cooperative THOUGHT PROCESS: Normal thought process present Skin: COMMON NORMALS: no rashes or lesions noted and no wounds GENERAL SKIN EXAM: no rashes or lesions noted Course 2 Reevaluation(s): Reevaluation #1: Patient had a large bloody bowel movement was bright red he then had a syncopal event here he is now awake and alert he is normotensive at this time never stop breathing and never lost a pulse Time: 04:23 Vital Signs: Vital signs: Vital Signs Temperature 97.5 F L 10/28/23 03:30 Pulse Rate 75 10/28/23 04:25 Respiratory Rate 30 H 10/28/23 04:25 Blood Pressure 127/70 10/28/23 04:25 Pulse Oximetry 97 10/28/23 04:25 Oxygen Delivery Me thod Room Air 10/28/23 03:30 MDM - GI Bleed Medical Decision Making Patient presents here with lower GI bleed likely from diverticulosis his hemoglobin has dropped from his baseline of 15 months ago to now 8.5 he had a bloody bowel movement here and had a syncopal event his blood pressures stayed stable we will transfuse him 2 units we will give him TXA I spoke to the hospitalist along with surgeon will admit to the ICU. Medical Records I reviewed the patient's medical records. Lab Data I reviewed the patient's lab results. 10/28/23 03:25 10/28/23 03:13 Laboratory Results WBC 9.82 10^3/uL (3.29-11.43) 10/28/23 03:13 RBC 2.83 10^6/uL (3.85-5.65) L 10/28/23 03:13 Hgb 8.20 g/dL (11.27-16.99) L 10/28/23 03:25 Hct 26.9 % (37-53) L 10/28/23 03:25 MCV 95.8 fl (82-101) 10/28/23 03:13 MCH 30.7 pg (27-33) 10/28/23 03:13 MCHC 32.1 g/dL (30-55) 10/28/23 03:13 RDW 13.5 % (12.1-15.1) 10/28/23 03:13 Plt Count 263 10^3/cmm (157-399) 10/28/23 03:13 MPV 9.2 fL (7.4-10.4) 10/28/23 03:13 Neut % (Auto) 69.4 % 10/28/23 03:13 Lymph % (Auto) 16.7 % 10/28/23 03:13 Coke % (Auto) 6.7 % 10/28/23 03:13 Eos % (Auto) 5.7 % 10/28/23 03:13 Baso % (Auto) 0.7 % 10/28/23 03:13 Neut # (Auto) 6.81 10^3/uL (1.8-7.7) 10/28/23 03:13 Lymph # (Auto) 1.6 10^3/uL (0.8-4.8) 10/28/23 03:13 Coke # (Auto) 0.7 10^3/uL (0.2-0.9) 10/28/23 03:13 Eos # (Auto) 0.6 10^3/uL (0.0-0.8) 10/28/23 03:13 Baso # (Auto) 0.1 10^3/uL (0.0-0.1) 10/28/23 03:13 Nucleated RBC % (auto) 0 % 10/28/23 03:13 Nucleated RBCs # 0.0 /100WBC 10/28/23 03:13 PT 13.10 SECONDS (12.1-14.9) 10/28/23 03:13 INR 0.96 (0.8-1.2) 10/28/23 03:13 Sodium 141 mmol/L (136-145) 10/28/23 03:13 Potassium 4.2 mmol/L (3.5-5.1) 10/28/23 03:13 Chloride 109 mmol/L (98-107) H 10/28/23 03:13 Carbon Dioxide 23 mmol/L (22-29) 10/28/23 03:13 Anion Gap 13.2 (5-19) 10/28/23 03:13 BUN 17 mg/dL (8-23) 10/28/23 03:13 Creatinine 0.6 mg/dL (0.7-1.2) L 10/28/23 03:13 GFR Calculation Not Reportable 10/28/23 03:13 Glucose 124 mg/dL (65-115) H 10/28/23 03:13 Calculated Osmolality 295 mOsm/kg (285-295) 10/28/23 03:13 Calcium 7.7 mg/dL (8.5-10.5) L 10/28/23 03:13 Total Bilirubin 0.2 mg/dL (0.15-1.2) 10/28/23 03:13 AST 16 U/L (0-40) 10/28/23 03:13 ALT 18 U/L (0-41) 10/28/23 03:13 Alkaline Phosphatase 51 U/L (40-130) 10/28/23 03:13 NT-Pro-B Natriuret Pep < 36 pg/mL (0-450) 10/28/23 03:13 Total Protein 5.2 g/dL (6.6-8.7) L 10/28/23 03:13 Albumin 3.3 g/dL (3.5-5.2) L 10/28/23 03:13 Globulin 1.9 g/dL (1.3-4.6) 10/28/23 03:13 Crossmatch See Detail 10/28/23 03:25 No radiology studies performed this visit Critical Care Time 2 Critical Care Time: Critical Care Time: Yes Total Critical Care Time: 40 Attestation: The high probability of a clinically significant, sudden or life threatening deterioration of the patient's gi system(s) required my full and direct attention, intervention and personal management. The critical care time is as shown. This time is in addition to time spent performing any reported procedures but includes the following: [x] Data and vital sign review and interpretation [x] Patient assessment, examination and intervention [x] Documentation [x] Medication orders and management Discharge Plan Discharge Patient Disposition: Admitted As Inpatient Clinical Impression: Lower gastrointestinal hemorrhage Condition: Stable Prescriptions: No Action glucosamine HCl 1,500 mg tablet 1,500 mg PO DAILY Rx Instructions: administer with a meal fluticasone propionate [Flonase Allergy Relief] 50 mcg/actuation spray,suspension 1 spray intranasal DAILY PRN Rx Instructions: administer into each nostril Centrum Silver Ultra Men's 300-600-300 mcg tablet 1 tab PO DAILY aspirin [Adult Low Dose Aspirin] 81 mg tablet,delayed release (DR/EC) 81 mg PO DAILY ciprofloxacin HCl 250 mg tablet 250 mg PO BID Qty: 14 0RF prednisone 10 mg tablet 10 mg PO DAILY Qty: 5 0RF esomeprazole magnesium [Nexium] 40 mg capsule,delayed release(DR/EC) 40 mg PO DAILY albuterol sulfate [Ventolin HFA] 90 mcg/actuation HFA aerosol inhaler 2 puff inhalation Q4H PRN (Reason: bronchospasm) Qty: 8.5 2RF metoprolol tartrate 25 mg tablet 25 mg PO BID Qty: 60 11RF amlodipine 5 mg tablet 5 mg PO DAILY Qty: 30 11RF atorvastatin 10 mg tablet 10 mg PO DAILY Qty: 30 11RF losartan 50 mg tablet 50 mg PO BID Qty: 60 12RF tadalafil [Cialis] 10 mg tablet 10 mg PO DAILY PRN (Reason: sexual activity) Qty: 30 11RF meloxicam 15 mg tablet See Rx Instructions .ROUTE .COMPLEX Qty: 90 3RF Dose Instruction: TAKE 1 TABLET BY MOUTH EVERY DAY Rx Instructions: TAKE 1 TABLET BY MOUTH EVERY DAY Flomax 0.4 mg capsule 0.4 mg PO DAILY Qty: 90 12RF Referrals: Jose Gonzalez MD [Primary Care Provider] - Coding Level of Care Code ED Pyroglazer for Valentin Chun
[2023-10-28 04:00] LABS: Basophils # 0.1 10^3/uL (0.0-0.1); Basophils % 0.7 %; Eosinophils # 0.6 10^3/uL (0.0-0.8); Eosinophils % 5.7 %; Hematocrit 27.1 % (37-53); Lymphocytes # 1.6 10^3/uL (0.8-4.8); Lymphocytes % 16.7 %; Mean Corpuscular HGB Conc 32.1 g/dL (30-55); Mean Corpuscular Hemoglobin 30.7 pg (27-33); Mean Corpuscular Volume 95.8 fl (82-101); Mean Platelet Volume 9.2 fL (7.4-10.4); Monocytes # 0.7 10^3/uL (0.2-0.9); Monocytes % 6.7 %; Neutrophils # 6.81 10^3/uL (1.8-7.7); Neutrophils % 69.4 %; Nucleated Red Blood Cells % 0 %; Platelet Count 263 10^3/cmm (157-399); Red Blood Count 2.83 10^6/uL (3.85-5.65); Red Cell Distribution Width 13.5 % (12.1-15.1); White Blood Count 9.82 10^3/uL (3.29-11.43)
[2023-10-28 04:11] LABS: INR 0.96 (0.8-1.2)
--- NOTE | 2023-10-28 04:20 | PC.NURSE ---
While this nurse was assessing pt, pt went unresponsive. MD called to bedside, MD did call Code Blue, no actions taken as pt became responsive. Pt had passed a large amount of blood in BM.
[2023-10-28 04:26] LABS: Alanine Aminotransferase 18 U/L (0-41); Albumin Level 3.3 g/dL (3.5-5.2); Alkaline Phosphatase 51 U/L (40-130); Anion Gap 13.2 (5-19); Aspartate Amino Transferase 16 U/L (0-40); Blood Urea Nitrogen 17 mg/dL (8-23); Calcium 7.7 mg/dL (8.5-10.5); Carbon Dioxide 23 mmol/L (22-29); Chloride 109 mmol/L (98-107); Creatinine Clr Calc Pharmacy 73.2047; Globulin 1.9 g/dL (1.3-4.6); Glucose 124 mg/dL (65-115); NT Pro B Type Natriuretic Pept < 36 pg/mL (0-450); Osmolality Calculated 295 mOsm/kg (285-295); Potassium 4.2 mmol/L (3.5-5.1); Sodium 141 mmol/L (136-145); Total Bilirubin 0.2 mg/dL (0.15-1.2); Total Protein 5.2 g/dL (6.6-8.7)
[2023-10-28 04:39] LABS: Hematocrit 26.9 % (37-53)
[2023-10-28 04:47] LABS: SARS Covid-2 Antigen negative (Negative)
[2023-10-28] MEDS: tranexamic acid 1,000 MG/100 ML PREMIX 600 MG IV ×2 (04:47→06:39)
[2023-10-28 05:02] LABS: Influenza A by IFA Negative (Negative); Influenza B by IFA Negative (Negative)
--- NOTE | 2023-10-28 07:48 | CT_ITS ---
WS: [id number] CT ABDOMEN AND PELVIS WITH CONTRAST HISTORY: rectal bleeding TECHNIQUE: Imaging performed of the abdomen and pelvis with IV contrast. Single phase imaging of the abdomen. Coronal and sagittal reformats are submitted. All CT scans at [facility] use at [facility] [facility] one of these dose optimization techniques: automated exposure control; mA and/or kV adjustment per patient size (includes targeted exams where dose is matched to clinical indication); or iterative re construction. IV CONTRAST: Omnipaque 350; 100 mL IV. Oral contrast: No DLP: 703.82 mGy.cm COMPARISON: 01/29/2022 Lower thorax: Mild interstitial lung disease at the bases. Benign RIGHT lung granuloma. Heart is norm al size. Small hiatal hernia. Liver/biliary system: Normal liver. Mild hepatic focal fatty sparing along the falciform ligament. 5 mm low-attenuation nodule superior RIGHT lobe. Normal portal vein. Gallbladder: Normal. No gallstones or wall thickening. No pericholecystic fluid. Pancreas: Normal size pancreas and pancreatic duct. No adjacent inflammation. Spleen: Normal size spleen. No mass or infarct. Granulomata. Adrenal glands: Normal. Right kidney: Normal size kidney. There are several cortical cysts. No solid mass or obstruction. Left kidney: Nonobstructing central 3 mm calcification. Too small to characterize hypodensities. Ther e is a larger cortical cyst in the upper pole measuring 2.6 x 1.9 cm. Aorta: Mild atherosclerosis with no aneurysm. Lymphadenopathy: None. Free fluid: None. GI tract: Nondistended stomach. No small bowel obstruction. Mild constipation. Several scattered dive rticula in the descending and sigmoid colon. Mild colonic wall thickening in the areas of diverticulo sis. No evidence for acute diverticulitis at this time. No abscess. Abdominal wall: Unremarkable abdominal wall. No hernia. Pelvis: No free fluid or adenopathy within the pelvis. Pelvic structures are partially obscured by ar tifact from the RIGHT hip prosthesis. Mild enlargement of the prostate gland encroaching into the uri nary bladder. Soft tissue nodularity along the base of the bladder is probably the prostate gland enc roaching into the bladder. Bones: Degenerative changes throughout the lumbar spine. No fracture. Prior RIGHT hip arthroplasty. IMPRESSION: 1. Extensive diverticulosis involving the descending and sigmoid colon. Mild wall thickening in the areas of diverticulosis. There is no obstruction or acute diverticulitis. No abscess. 2. Bilateral renal cysts. 3. Normal appendix. 4. Prostate gland enlargement approaching into the base of the urinary bladder. The soft tissue nodu larity at the base of the bladder may be contiguous with the prostate. Soft tissue nodularity appears slightly more prominent than expected for the extent of prostate enlargement. If patient has any hem aturia consider urology evaluation to exclude uroepithelial neoplasm.
--- NOTE | 2023-10-28 07:49 | P.HP_ITS ---
Providers/Chief Complaint 2 Admitting Physician: Holley Ibarra MD Primary Care Provider: Jose Gonzalez MD Chief Complaint: SOB, Rectal Bleeding History of Present Illness Oj Haider is a 78 year old male with a past medical history of known diverticulosis with history of intermittent rectal bleeding over the past year. Presumed past history of diverticulitis additionally. He presents to the hospital today with chief complaints of bright red rectal bleeding since Saturday (today is Saturday morning). Patient states that he has been noticing blood with mucus in his stools. This has been increasing in frequency since Saturday. Now he sees blood in toilet bowl also, entire contents appear to be red. Stool itself appears to be formed. Denies any tenesmus. Does have abdominal soreness . He has been taking a regular diet thus far. Last night he had a large bloody bowel movement at home following which he felt extremely dizzy, almost as if he was going to pass out. He laid on the bathroom floor for a long time, and then came to the emergency room. While in the emergency room he had another episode of near syncope after having another bloody bowel movement. Hemoglobin today is at 8.2, previously known baseline of 15 from May 2023. He is currently being transfused 1 unit of packed red blood cell. Denies any fever at home. Past medical history is notable for recurrent episodes of diverticulitis , it appears some of these may have been presumed diverticulitis episodes. Last CT of the abdomen and pelvis dates back to January 2022 in our system which showed extensive diverticulosis within the distal colon without evidence of diverticulitis. His last colonoscopy dates back to 2018. He did follow-up as outpatient with Dr. Nathan after his last episode of bleeding approximately a year ago, per his description, colonoscopy was deferred in view of his advanced age at the time and presumed diverticular source of bleeding. There is no known history of GI malignancy. He gets frequent PSA checks every 3 months, thus far no concern for prostate cancer. He has had a cough for much of the last week, evaluated by PCP on October 22, 2023, diagnosed with sinusitis for which she received a prescription for ciprofloxacin to 50 mg p.o. twice daily and prednisone 10 mg p.o. daily for 5 days. Chest x-ray taken today shows left lower lobe infiltrate which may represent an infiltrate atelectasis or small pleural effusion. Review of records show that he was treated with 7 days of Augmentin in September 2023 for presumed diverticulitis after he had presented to his primary care nurse practitioner with complaints of bloody diarrheal stools. Review of Systems 2 General: Reports: 10 or more systems reviewed and unremarkable except in HPI and below Const: Denies: fever(s), chills or body aches Eyes: Denies: change in vision, blurry vision or photophobia ENMT: Reports: hoarseness; Denies: throat pain, enlarged tonsils, odynophagia or nasal congestion Card: Denies: chest pain, palpitations, irregular heart rhythm, edema, swelling of feet/ankles, lightheadedness, pre-syncope, dyspnea on exertion or orthopnea Resp: Denies: dyspnea, productive cough, non-productive cough, wheezing, stridor, pain on inspiration, change in phlegm color, hemoptysis or chest congestion GI: Denies: abdominal pain, nausea, vomiting, hematemesis, coffee ground emesis, dysphagia, heartburn, diarrhea, constipation, GI cramping, change in stool character, hematochezia or melena : Denies: flank pain, dysuria, urinary frequency, urinary urgency, urinary hesitancy or hematuria Musc: Denies: neck pain, back pain, extremity pain, joint swelling, joint warmth or deformity Neuro: Denies: headache(s), numbness in extremities, weakness in extremities, sensory changes, difficulty walking, frequent falls, dizziness, vertigo, behavioral changes, Slurred speech present or seizure-like activity Psych: Denies: anxiety, depression, suicidal ideation or homicidal ideation Endo: Denies: polyuria, polydipsia, tired all the time, cold intolerance or hot flashes Manan/Lymph: Denies: easy bruising or easy bleeding Medications/Allergies Home Medications Medication Instructions Recorded Confirmed Last Taken Type glucosamine HCl 1,500 mg tablet 1,500 mg PO DAILY 11/21/20 10/28/23 10/27/23 History aspirin 81 mg tablet,delayed 81 mg PO QPM 02/21/22 10/28/23 10/27/23 History release (Adult Low Dose Aspirin) [id number] 300 mcg-K 60 1 tab PO DAILY 02/21/22 10/28/23 10/27/23 History mcg-lycop 600 mcg-lutein 300 mcg tablet (Centrum Silver Ultra Men's) losartan 50 mg tablet 50 mg PO BID #60 tabs 08/16/23 10/28/23 10/27/23 Rx tadalafil 10 mg tablet (Cialis) 10 mg PO DAILY PRN sexual activity 08/16/23 10/28/23 Unknown Rx #30 tabs tamsulosin 0.4 mg capsule (Flomax) 0.4 mg PO DAILY #90 caps 08/29/23 10/28/23 10/27/23 Rx ciprofloxacin HCl 250 mg tablet 250 mg PO BID #14 tabs 10/22/23 10/28/23 10/27/23 Rx prednisone 10 mg tablet 10 mg PO DAILY #5 tabs 10/22/23 10/28/23 10/27/23 Rx meloxicam 15 mg tablet 15 mg PO QAM 10/28/23 10/28/23 10/27/23 History omega-3 fatty acids-fish oil 684 1 cap PO DAILY 10/28/23 10/28/23 10/27/23 History mg-1,200 mg capsule,delayed release Allergies Allergy/AdvReac Type Severity Reaction Status Date / Time atorvastatin Allergy Intermediate severe Verified 11/21/22 13:07 weakness PFSH Acute 2 PFSH: Medical History Diverticulosis Hypertension BPH (benign prostatic hyperplasia) Primary osteoarthritis of right hip Surgical History History of left shoulder replacement H/O repair of rotator cuff History of hip replacement Family History Denies family history of Diabetes CAD (coronary artery disease) Hypertension Social History Smoking and tobacco/nicotine status: never used tobacco/nicotine Alcohol intake: current Alcohol intake frequency: holidays/special occasions only Alcohol type: beer Substance/Drug Use: never Vitals/I&O/Wt Last Vital Signs Temp 97.0 F L 10/28/23 07:22 Pulse 81 10/28/23 07:22 Resp 22 H 10/28/23 07:22 BP 151/78 10/28/23 07:22 Pulse Ox 98 10/28/23 07:22 O2 Del Method Room Air 10/28/23 05:30 10/27/23 10/28/23 10/28/23 22:59 06:59 14:59 Intake Total 0 / 0 Balance 0 / 0 Weight last 48 hrs Weight 77.973 kg Weight 77.111 kg Physical Exam 2 Narrative: General: No acute distress, AO x3 HEENT: PERRLA, pupils bilaterally equal and reactive, pallors + Chest: Normal vesicular breath sounds, no added sounds, equal good air entry bilaterally CVS: S1-S2 regular, no murmurs, no tachycardia, no gallops, no rubs Abdomen: Soft, nontender, no organomegaly, bowel sounds present Neuro: No focal deficits, no facial deformity, AO x3, power 5/5 in all limbs Extremities: No edema clubbing or cyanosis Data 10/28/23 03:25 10/28/23 03:13 A&P Assessment and plan (1) Lower gastrointestinal hemorrhage: (2) Diverticulosis of colon with hemorrhage: (3) Acute blood loss anemia: (4) Syncope: Qualifiers: Syncope type: unspecified Qualified Code(s): R55 - Syncope and collapse Plan 78-year-old male with a past medical history of diverticulosis and presumed multiple episodes of diverticulitis presenting currently with rectal bleeding which has continued to worsen since Saturday. Admit to ICU in view of hemodynamic instability Today he had 2 bloody bowel movements with near syncopal episodes including 1 witnessed 1 in the emergency room. Hemoglobin today at 8.2, significant decline since 15 when tested in May 2023. Likely that his syncopal episode was related to acute blood loss anemia. Place on telemetry Hemodynamically stable at rest, defer orthostatics for now as getting blood transfusion. Ordered for packed red blood cell transfusion, currently first unit transfusing. He received tranexa in the ER. Check H&H every [address] of the abdomen and pelvis given that he also reports some abdominal discomfort, CT to assess for diverticulitis. NPO except sips and chips until CT and surgery assessment General surgery consult Persisting cough over the last week, chest x-ray shows left lower lobe infiltrate. Ceftriaxone 1 g IV every 24 hours for possibility of pneumonia. patient has been on ciprofloxacin over the past week, would suffice as atypical coverage. Hold ASA and meloxicam Hold antihypertensives for now DVT ppx: Scds only, a/c contraindicated Attestations 2 Medical Necessity Statement*: > 2 midnigt admission anticipated Coding Level of Care Code Acute Code for Chg Fwd High MDM includes number and complexity of problems actively addressed during encounter, amount and/or complexity of data reviewed/ordered and described risk of complication, morbidity or mortality of management as documented Diagnoses Lower gastrointestinal hemorrhage K92.2 Diverticulosis of colon with hemorrhage K57.31 Acute blood loss anemia D62 Syncope, unspecified syncope type R55 Syncope type: unspecified
[2023-10-28] MEDS: cefTRIAXone 1,000 MG in sodium chloride 0.9% (plus) 50 ML 100 MG IV (08:59)
[2023-10-28] MEDS: pantoprazole DR 40 mg Tablet PO (09:04)
--- NOTE | 2023-10-28 09:48 | PC.NURSE ---
0915 first unit of PRBC infused, running saline through
[2023-10-28] MEDS: iohexol 350 mg/mL 500 mL Btl (per mL) IV (10:17)
--- NOTE | 2023-10-28 10:20 | P.CONIM_ITS ---
Providers/Reason For Consult 2 Consulting Physician/Specialty*: Dr. Modesto Glass, DO/General surgery Reason for Consult*: GI bleed Attending Physician: Donte Kinsey Primary Care Provider: Jose Gonzalez MD History of Present Illness History of Present Illness Oj Haider is a 78 year old male who presented to the hospital with a 3- hour history of lower abdominal pain and hematochezia. He reports that he has had diverticular bleeding that required colonoscopies 3 times in the past. Last one being 3 years ago. His abdominal pain is suprapubic and dull. This constant pain does not radiate. Palpation makes pain worse. Having bowel movement made the pain better. He had 2 episodes of hematochezia prior to coming to the hospital and had a significant drop in hemoglobin. He is currently receiving a transfusion of packed red blood cells. Denies any nausea or vomiting. Review of Systems 2 General: Reports: 10 or more systems reviewed and unremarkable except in HPI and below Medications/Allergies Home Medications Medication Instructions Recorded Confirmed Last Taken Type glucosamine HCl 1,500 mg tablet 1,500 mg PO DAILY 11/21/20 10/28/23 10/27/23 History aspirin 81 mg tablet,delayed 81 mg PO QPM 02/21/22 10/28/23 10/27/23 History release (Adult Low Dose Aspirin) [id number] 300 mcg-K 60 1 tab PO DAILY 02/21/22 10/28/23 10/27/23 History mcg-lycop 600 mcg-lutein 300 mcg tablet (Centrum Silver Ultra Men's) losartan 50 mg tablet 50 mg PO BID #60 tabs 08/16/23 10/28/23 10/27/23 Rx tadalafil 10 mg tablet (Cialis) 10 mg PO DAILY PRN sexual activity 08/16/23 10/28/23 Unknown Rx #30 tabs tamsulosin 0.4 mg capsule (Flomax) 0.4 mg PO DAILY #90 caps 08/29/23 10/28/23 10/27/23 Rx ciprofloxacin HCl 250 mg tablet 250 mg PO BID #14 tabs 10/22/23 10/28/23 10/27/23 Rx prednisone 10 mg tablet 10 mg PO DAILY #5 tabs 10/22/23 10/28/23 10/27/23 Rx meloxicam 15 mg tablet 15 mg PO QAM 10/28/23 10/28/23 10/27/23 History omega-3 fatty acids-fish oil 684 1 cap PO DAILY 10/28/23 10/28/23 10/27/23 History mg-1,200 mg capsule,delayed release Allergies Allergy/AdvReac Type Severity Reaction Status Date / Time atorvastatin Allergy Intermediate severe Verified 11/21/22 13:07 weakness Current Medications Generic Name Dose Route Start Last Admin Trade Name Vinicius PRN Reason Stop Dose Admin Ceftriaxone Sodium 1,000 mg/ 50 mls @ 100 mls/hr 10/28/23 08:00 10/28/23 08:59 Sodium Chloride IV 100 mls/hr Q24H RAFFY Administration Protocol Pantoprazole Sodium 40 mg 10/28/23 09:00 10/28/23 09:[address] 40 Mg Tablet PO 40 mg DAILY RAFFY Administration PFSH Acute 2 PFSH: Medical History Diverticulosis Hypertension BPH (benign prostatic hyperplasia) Primary osteoarthritis of right hip Surgical History History of left shoulder replacement H/O repair of rotator cuff History of hip replacement Family History Denies family history of Diabetes CAD (coronary artery disease) Hypertension Social History Smoking and tobacco/nicotine status: never used tobacco/nicotine Alcohol intake: current Alcohol intake frequency: holidays/special occasions only Alcohol type: beer Substance/Drug Use: never Vitals/I&O/Wt Last Vital Signs Temp 97.0 F L 10/28/23 07:50 Pulse 81 10/28/23 08:05 Resp 16 10/28/23 08:05 BP 136/75 10/28/23 08:00 Pulse Ox 98 10/28/23 08:05 O2 Del Method Room Air 10/28/23 05:30 10/27/23 10/28/23 10/28/23 22:59 06:59 14:59 Intake Total 0 / 0 350 / 350 Balance 0 / 0 350 / 350 Weight last 48 hrs Weight 171 lb 14.4 oz Weight 170 lb Physical Exam 2 Narrative: General : Patient is well developed , no acute distress, oriented x3 Head : Normal cephalic, a-traumatic. Ears : Pinnae and external canal are normal. Hearing is normal. Eyes : PERRLA, Sclera and injection are normal. No conjunctival discharge. Nose : Mucous membranes are without erythema. Throat : buccal mucosa is normal, gums are without significant recession or hypertrophy. Lungs : Equal chest rise bilaterally, no use of accessory muscles, trachea is midline. Cor : Rate and rhythm are normal. Abdomen : Soft, mild distention, mild suprapubic tenderness, no g/r/m Extremities : No edema, no cyanosis or clubbing, dorsalis pedis pulses are present bilaterally, non-tender to palpation of calves. Upper extremities are normal bilaterally. Back : non-tender to palpation, no CVA tenderness. Neuro : CN II - XII intact, Upper and lower extremities have equal and full strength Data 10/28/23 03:25 10/28/23 03:13 A&P Assessment and plan (1) Diverticulosis of colon with hemorrhage: Plan Bowel prep Tomorrow for colonoscopy The risks and benefits of the procedure, including bleeding, infection, intestinal perforation requiring surgery, missed lesion were explained to the patient. The patient is understanding of the risks and wishes to proceed. If he continues to have massive hemorrhage and/or hemoglobin continues to fall, he may need to go for colonoscopy sooner than tomorrow Coding Level of Care Code 64415 Diagnoses Diverticulosis of colon with hemorrhage K57.31
[2023-10-28] MEDS: bisacodyl 5 mg Tablet 40 MG PO (11:11)
[2023-10-28] MEDS: magnesium citrate Btl 296 mL PO ×2 (11:14→11:57)
--- NOTE | 2023-10-28 12:11 | P.PN_ITS ---
Subjective 2 Subjective: Denies abdominal pain. Denies any vomiting. So far not having additional hematochezia. Has had colonoscopy in the past assess the previous one was about 5 years ago. Vitals/I&O/Wt Last Vital Signs Temp 96.2 F L 10/28/23 11:00 Pulse 79 10/28/23 11:10 Resp 17 10/28/23 11:10 BP 174/77 10/28/23 11:00 Pulse Ox 97 10/28/23 11:10 O2 Del Method Room Air 10/28/23 11:10 10/27/23 10/28/23 10/28/23 22:59 06:59 14:59 Intake Total 0 / 0 400 / 400 Balance 0 / 0 400 / 400 Weight last 48 hrs Weight 77.973 kg Weight 77.973 kg Weight 77.111 kg Physical Exam 2 Narrative: Hard of hearing. Hears when spoken to loudly Const: COMMON NORMALS: patient oriented x3 and alert GENERAL APPEARANCE: c ooperative ORIENTATION/CONSCIOUSNESS: Yes awake HENMT: COMMON NORMALS: oropharynx normal Neck/C-Spine: COMMON NORMALS: no JVD Resp: COMMON NORMALS: normal respiratory effort and clear to auscultation bilaterally AUSCULTATION: clear to auscultation bilaterally Cardio: COMMON NORMALS: no JVD, regular rhythm, S1 normal heart sound present, S2 normal heart sound present and No murmurs present (Cardio) RHYTHM: regular rhythm HEART SOUNDS: S1 normal heart sound present and S2 normal heart sound present GI: COMMON NORMALS: Normal to inspection, nondistended, normoactive bowel sounds present, Soft to palpation and non-tender PALPATION: Yes Soft to palpation Extremity: COMMON NORMALS: no joint enlargement and no pedal edema Neuro: COMMON NORMALS: patient oriented x3 and moves all extremities S ENSORIUM/ORIENTATION: Yes alert Skin: COMMON NORMALS: no rashes or lesions noted GENERAL SKIN EXAM: no rashes or lesions noted Data 10/28/23 03:25 10/28/23 03:13 A&P Assessment and plan (1) Lower gastrointestinal hemorrhage: Reviewed hemoglobin, down to 8.2. Reviewed platelets. INR. Has received 1 unit of RBC transfusion, additional unit is transfusing. At the moment so far has not had additional hematochezia. Has had colonoscopy last time about 5 years ago. States at that time was unremarkable. He has discussed his condition with surgery and has planned for colonoscopy with surgery for tomorrow. Reviewed surgery note. EGD is planned as well. Follow-up hemoglobins have been requested. He is on clear liquid diet. Hold ASA and meloxicam Hold antihypertensives for now. Discussed with mental health case manager. (2) Diverticulosis of colon with hemorrhage: (3) Acute blood loss anemia: Had a syncope in ER. Losartan had been held for now (4) Syncope: Reassess hemoglobin. Monitor on telemetry. Reviewed rapid influenza, rapid COVID-19, CMP. Unremarkable. Qualifiers: Syncope type: unspecified Qualified Code(s): R55 - Syncope and collapse Plan 78-year-old male with a past medical history of diverticulosis and presumed multiple episodes of diverticulitis presenting currently with rectal bleeding which has continued to worsen since Saturday. Prostate gland enlargement approaching into the base of the urinary bladder. The soft tissue nodularity at the base of the bladder may be contiguous with the prostate. Soft tissue nodularity appears slightly more prominent than expected for the extent of prostate enlargement. Obtain UA. Persisting cough over the last week, chest x-ray shows left lower lobe infiltrate. Ceftriaxone 1 g IV every 24 hours for possibility of pneumonia. patient has been on ciprofloxacin over the past week, would suffice as atypical coverage. Reviewed WBC. Incentive spirometer. He does report some chronic scarring in his lungs. Also does have some chronic cough over the last 3 years or so as well as dyspnea on exertion. Would benefit from follow-up for PFT as discussed with him. BPH: Resume tamsulosin. DVT ppx: Scds only, a/c contraindicated Attestations 2 Medical Necessity Statement*: Continue admission for assessment management of lower GI bleeding. Syncope. and High MDM includes amount and/or complexity of data reviewed/ordered [ previous or external records, resulted lab(s)/test(s), ordered lab(s)/test(s) and other healthcare professional discussion] as documented Diagnoses Lower gastrointestinal hemorrhage K92.2 Diverticulosis of colon with hemorrhage K57.31 Acute blood loss anemia D62 Syncope, unspecified syncope type R55 Syncope type: unspecified
[2023-10-28 14:57] LABS: Add Urine Microscopic? NO; Charge for UA Resulting for Rev
[2023-10-28 15:01] LABS: Bilirubin Urine Neg (Negative); Blood Urine Neg (Negative); Glucose Urine UA Norm (Normal); Ketones Urine Negative (Negative); Leukocyte Esterase Urine Negative (Negative); Nitrate Urine Negative (Negative); Protein Urine Neg (Negative); Urine Appearance Clear (CLEAR); Urine Color Yellow (Yellow); Urobilinogen Urine Norm (Negative); pH Urine 5 (5-7)
[2023-10-28 15:50] LABS: Hematocrit 33.4 % (37-53)
[2023-10-28] MEDS: tamsulosin 0.4 mg Capsule 0.400000000000000022 MG PO (16:31)
[2023-10-28] MEDS: acetaminophen 325 mg Tablet 650 MG PO (19:24)
[2023-10-28 22:01] LABS: Hematocrit 32.7 % (37-53)
[2023-10-29] VITALS (9 sets, daily range): BP systolic 93–145; BP diastolic 56–81; PULSE 74–83; RESP 16–18; TEMP 36.3–36.6; O2SAT 92–96
[2023-10-29 01:58] LABS: Hematocrit 32.9 % (37-53)
[2023-10-29 05:51] LABS: Basophils # 0.1 10^3/uL (0.0-0.1); Basophils % 0.6 %; Eosinophils # 0.5 10^3/uL (0.0-0.8); Eosinophils % 5.2 %; Hematocrit 31.1 % (37-53); Lymphocytes # 1.5 10^3/uL (0.8-4.8); Lymphocytes % 14.3 %; Mean Corpuscular HGB Conc 33.4 g/dL (30-55); Mean Corpuscular Hemoglobin 30.1 pg (27-33); Mean Corpuscular Volume 89.9 fl (82-101); Mean Platelet Volume 9.4 fL (7.4-10.4); Monocytes # 0.7 10^3/uL (0.2-0.9); Monocytes % 6.7 %; Neutrophils # 7.48 10^3/uL (1.8-7.7); Neutrophils % 72.5 %; Nucleated Red Blood Cells % 0 %; Platelet Count 257 10^3/cmm (157-399); Red Blood Count 3.46 10^6/uL (3.85-5.65); Red Cell Distribution Width 15.5 % (12.1-15.1); White Blood Count 10.31 10^3/uL (3.29-11.43)
[2023-10-29 06:18] LABS: Alanine Aminotransferase 18 U/L (0-41); Albumin Level 3.4 g/dL (3.5-5.2); Alkaline Phosphatase 59 U/L (40-130); Anion Gap 11.1 (5-19); Aspartate Amino Transferase 16 U/L (0-40); Blood Urea Nitrogen 8 mg/dL (8-23); Calcium 7.8 mg/dL (8.5-10.5); Carbon Dioxide 23 mmol/L (22-29); Chloride 109 mmol/L (98-107); Creatinine Clr Calc Pharmacy 77.9542; Globulin 2.3 g/dL (1.3-4.6); Glucose 107 mg/dL (65-115); Osmolality Calculated 287 mOsm/kg (285-295); Potassium 4.1 mmol/L (3.5-5.1); Sodium 139 mmol/L (136-145); Total Bilirubin 0.4 mg/dL (0.15-1.2); Total Protein 5.7 g/dL (6.6-8.7)
--- NOTE | 2023-10-29 07:33 | P.PN_ITS ---
Vitals/I&O/Wt Last Vital Signs Temp 97.7 F 10/29/23 06:21 Pulse 83 10/29/23 06:21 Resp 17 10/29/23 06:21 BP 126/71 10/29/23 06:21 Pulse Ox 94 10/29/23 06:21 O2 Del Method Room Air 10/28/23 11:10 10/28/23 10/29/23 10/29/23 22:59 06:59 14:59 Intake Total 360 / 760 Balance 360 / 760 Weight last 48 hrs Weight 168 lb 3.2 oz Weight 171 lb 14.4 oz Weight 171 lb 14.4 oz Weight 170 lb Data 10/29/23 05:24 10/29/23 05:24 A&P Assessment and plan (1) Diverticulosis of colon with hemorrhage: Plan Colonoscopy The risks and benefits of the procedure, including bleeding, infection, intestinal perforation requiring surgery, missed lesion were explained to the patient. The patient is understanding of the risks and wishes to proceed. Attestations 2 Medical Necessity Statement*: per primary Coding Level of Care Code Acute Code for [facility] Diagnoses Diverticulosis of colon with hemorrhage K57.31
[2023-10-29] MEDS: sodium chloride 0.9% 1,000 ML 30 ML IV (07:48)
--- NOTE | 2023-10-29 08:06 | PM.MISC ---
Miscellaneous Note Note: Only diverticulosis seen on colonoscopy. No active bleeding or polyps. Surgically stable for discharge
--- NOTE | 2023-10-29 08:07 | ANES.PREANE2 ---
Pre-Anesthetic Assessment Height/Weight: Height 1.75 m Weight 76.294 kg Temp Pulse Resp BP Pulse Ox O2 Del Method 97.7 F 83 17 126/71 94 Room Air 10/29/23 06:21 10/29/23 06:21 10/29/23 06:21 10/29/23 06:21 10/29/23 06:21 10/28/23 11:10 Preop Diagnosis: rectal bleed Operation Date: 10/29/23 08:00 Proposed Procedures p Colonoscopy(Not Applicable) - [place] Glass DO Familial anesthetic complications: none Was Beta Randi taken within 24 hours: N/A Was Clonidine taken within 24 hours: N/A Last Intake: 22:00 Social No alcohol and No tobacco Exam alert and oriented x 3 Airway Submandibular: within normal limits Cervical ROM: within normal limits Mallampati: Class III Dentition: full History/ROS No significant history except as noted Pulmonary Exertional Dyspnea CV/HEM Hypertension None reported Hepatic None reported GI None reported Metabolic None reported Musc/skel None reported Neuropsych None reported Anesthetic Plan ASA status: 2 Anesthesia: Anesthesia Evaluation, General and MAC Risk of > 500 ml blood loss (7ml/kg in children): No Medications/Allergies Home Medications Medication Instructions Recorded Confirmed Last Taken Type glucosamine HCl 1,500 mg tablet 1,500 mg PO DAILY 11/21/20 10/28/23 10/27/23 History aspirin 81 mg tablet,delayed 81 mg PO QPM 02/21/22 10/28/23 10/27/23 History release (Adult Low Dose Aspirin) [id number] 300 mcg-K 60 1 tab PO DAILY 02/21/22 10/28/23 10/27/23 History mcg-lycop 600 mcg-lutein 300 mcg tablet (Centrum Silver Ultra Men's) losartan 50 mg tablet 50 mg PO BID #60 tabs 08/16/23 10/28/23 10/27/23 Rx tadalafil 10 mg tablet (Cialis) 10 mg PO DAILY PRN sexual activity 08/16/23 10/28/23 Unknown Rx #30 tabs tamsulosin 0.4 mg capsule (Flomax) 0.4 mg PO DAILY #90 caps 08/29/23 10/28/23 10/27/23 Rx ciprofloxacin HCl 250 mg tablet 250 mg PO BID #14 tabs 10/22/23 10/28/23 10/27/23 Rx prednisone 10 mg tablet 10 mg PO DAILY #5 tabs 10/22/23 10/28/23 10/27/23 Rx meloxicam 15 mg tablet 15 mg PO QAM 10/28/23 10/28/23 10/27/23 History omega-3 fatty acids-fish oil 684 1 cap PO DAILY 10/28/23 10/28/23 10/27/23 History mg-1,200 mg capsule,delayed release Allergies Allergy/AdvReac Type Severity Reaction Status Date / Time atorvastatin Allergy Intermediate severe Verified 11/21/22 13:07 weakness Current Medications Generic Name Dose Route Start Last Admin Trade Name Freq PRN Reason Stop Dose Admin Acetaminophen 650 mg 10/28/23 07:44 10/28/23 19:24 Acetaminophen 325 Mg Tablet PO 650 mg Q6H PRN Administration Mild/Mod Pain Or Temp >/= 101 Ceftriaxone Sodium 1,000 mg/ 50 mls @ 100 mls/hr 10/28/23 08:00 10/28/23 09:25 Sodium Chloride IV Infused Q24H RAFFY Infusion Protocol Sodium Chloride 1,000 mls @ 30 mls/hr 10/29/23 07:45 10/29/23 07:48 Sodium Chloride 0.9% IV 10/30/23 07:44 30 mls/hr .Q24H RAFFY Administration Pantoprazole Sodium 40 mg 10/28/23 09:00 10/28/23 09:[address] 40 Mg Tablet PO 40 mg DAILY RAFFY Administration Tamsulosin HCl 0.4 mg 10/28/23 12:25 10/28/23 16:31 Tamsulosin 0.4 Mg Capsule PO 0.4 mg DAILY RAFFY Administration [facility] Anesthesia Medical History Diverticulosis Hypertension BPH (benign prostatic hyperplasia) Primary osteoarthritis of right hip Surgical History History of left shoulder replacement H/O repair of rotator cuff History of hip replacement Family History Denies family history of Diabetes CAD (coronary artery disease) Hypertension Social History Smoking and tobacco/nicotine status: never used tobacco/nicotine Alcohol intake: current Alcohol intake frequency: holidays/special occasions only Alcohol type: beer Substance/Drug Use: never Data Anesthesia 10/29/23 05:24 10/29/23 05:24 Short CBC 10/28/23 10/28/23 10/28/23 Range/Units 03:13 03:25 15:18 WBC 9.82 (3.29-11.43) 10^3/uL Hgb 8.70 L 8.20 L 11.00 L D (11.27-16.99) g/dL Hct 27.1 L 26.9 L 33.4 L (37-53) % MCV 95.8 (82-101) fl Plt Count 263 (157-399) 10^3/cmm Neut % (Auto) 69.4 % Neut # (Auto) 6.81 (1.8-7.7) 10^3/uL 10/28/23 10/29/23 10/29/23 Range/Units 21:43 01:53 05:24 WBC 10.31 (3.29-11.43) 10^3/uL Hgb 10.80 L 10.80 L 10.40 L (11.27-16.99) g/dL Hct 32.7 L 32.9 L 31.1 L (37-53) % MCV 89.9 (82-101) fl Plt Count 257 (157-399) 10^3/cmm Neut % (Auto) 72.5 % Neut # (Auto) 7.48 (1.8-7.7) 10^3/uL BMP 10/28/23 10/29/23 03:13 05:24 Sodium 141 139 Potassium 4.2 4.1 Chloride 109 H 109 H Carbon Dioxide 23 23 BUN 17 8 Creatinine 0.6 L 0.5 L Glucose 124 H 107 Calcium 7.7 L 7.8 L Cardiac Enzymes 10/28/23 Range/Units 03:13 NT-Pro-B Natriuret Pep < 36 (0-450) pg/mL Liver Function 10/28/23 10/29/23 Range/Units 03:13 05:24 Total Bilirubin 0.2 0.4 (0.15-1.2) mg/dL AST 16 16 (0-40) U/L ALT 18 18 (0-41) U/L Alkaline Phosphatase 51 59 (40-130) U/L Albumin 3.3 L 3.4 L (3.5-5.2) g/dL Urine 10/28/23 Range/Units 14:45 Urine Color Yellow (Yellow) Urine Appearance Clear (CLEAR) Urine pH 5 (5-7) Ur Specific [place] 1.010 (1.005-1.030) Urine Protein Neg (Negative) Urine Glucose (UA) Norm (Normal) Urine Ketones Negative (Negative) Urine Nitrate Negative (Negative) Urine Bilirubin Neg (Negative) Ur Leukocyte Esterase Negative (Negative) Blood Bank 10/28/23 03:25 Blood Type O Positive Rho(D) Type Rh positive Antibody Screen Negative COVID Results 10/28/23 04:22 SARS-CoV-2 Ag (Rapid) negative Coags 10/28/23 03:13 PT 13.10 INR 0.96 Cardiac Studies: Echocardiogram 05/22/22 Echocardiogram Ultrasound 05/16/20 Sestamibi Stress Test (Cardiology) 01/03/22 Holter Monitor 11/08/21
--- NOTE | 2023-10-29 08:35 | ANE.PACU2 ---
Inpatient post-anesthesia follow up: Airway intact: Yes Vital signs: Temperature 97.4 F Pulse Rate 74 Respiratory Rate 16 Blood Pressure 145/81 Pulse Oximetry 95 Oxygen Delivery Me thod Room Air Oxygen Flow Rate Fraction of Inspir ed Oxygen Hydration adequate: Yes Nausea and vomiting: No Pain level: 1 Mental status: Baseline
--- NOTE | 2023-10-29 09:31 | PC.CHAP ---
Pastoral Care Encounter/Spiritual Assessment Type of Contact [] Declined outpatient coordinator visit [] Patient/Family/Request visit [] Outpatient visit [] Follow-up visit [] Physician referral [] Code/Alert [x] Routine visit [] Staff referral [] Actively dying [] Patient sleeping [x] Family support [] [] Out of room [] Palliative care [] [] Receiving care in room [] Pre-surgical visit [] Trauma [] Long length of stay [] ICU visit [] Other: Relational/Emotional Strength [x] Patient feels connected with others/family/visitors/staff [] Distress [] Loneliness/isolation [] Abandonment Spirituality of Patient [x] Person of Maggie [x] Attends Mormonism of their Maggie [x] Believes in Prayer [x] Reads Bible or Restorationism materials [] There are Spiritual issues to be addressed [employer] Interventions [x] Prayer [x] Active listening [] Non-anxious presence [x] Spiritual/emotional support [] Crisis/trauma care [] Spiritual counseling [] Bereavement support [] Provided bereavement packet [] Provided Bible/devotional materials [] Provided toy/stuffed animal, coloring book to patient or family member [] Provided Communion [] Anointing/[place] [] Salvation [x] Completed spiritual assessment [] Other: Impact on Illness or Injury [] Angry [] Fearful [] Anxious [] Often cries [] Exhaustion [] Unable to work [] Unable to attend orthodoxy [] Unable to walk/stand [] Unable to read [] Unable to drive [] Unable to eat/drink [] Unable to sleep [] Unable to be with family [] Patient intubated [] Other: Summary Time spent with patient 10 min
--- NOTE | 2023-10-29 10:26 | PM.DCS ---
Discharge Providers Date of Admission: 10/28/23 04:58 Date of Discharge: October 29, 2023 Attending Provider at Admission: Holley Ibarra MD Attending Provider at Discharge: Donte Kinsey Primary Care Provider: Jose Gonzalez MD Diagnoses at Discharge Discharge Diagnosis (1) Diverticulosis of colon with hemorrhage: Status: Acute Reason for Visit Reason for Visit: SOB, Rectal Bleeding Hospital Course Hospital Course 78-year-old gentleman with history of abnormal stress test, suspected CAD, managed medically, diverticulosis and diverticular bleeding over the past year was admitted after presenting with lower GI bleeding with bright red blood per rectum, felt dizzy after large bowel movement, and emergency had a near syncopal episode. Noted acute anemia on presentation of 8.2, prior baseline 15 back in May. Received RBC transfusion. He additionally reported having dyspnea on exertion, chronic cough, on presentation possible infiltrate versus [place] left lower lobe, was recently treated chronic sinusitis with ciprofloxacin and prednisone. Cefdinir was added during hospitalization for lower possibility of pneumonia. He was assessed by surgery, upper and lower GI endoscopy was arranged, he was found diverticulosis, no active bleeding, was cleared for discharge to follow-up with surgery in office in several weeks to discuss consideration of hemicolectomy with history of recurrent diverticular bleeding. He will complete a brief course with cefdinir. Please reassess for resolution of infiltrate in left lower lobe. With dyspnea on exertion please consider referral for pulmonary function testing once he is closer to his usual baseline. With history of suspected CAD managed medically, with dyspnea exertion consider reassessment stress testing. Physical Exam Narrative: He reports he is doing well, no further blood per rectum. Reports to be discharged. Accompanied by his . Const: COMMON NORMALS: patient oriented x3 and alert GENERAL APPEARANCE: cooperative ORIENTATION/CONSCIOUSNESS: Yes awake HENMT: COMMON NORMALS: oropharynx normal Neck/C-Spine: COMMON NORMALS: no JVD Resp: COMMON NORMALS: normal respiratory effort and clear to auscultation bilaterally AUSCULTATION: clear to auscultation bilaterally Cardio: COMMON NORMALS: no JVD, regular rhythm, S1 normal heart sound present, S2 normal heart sound present and No murmurs present (Cardio) RHYTHM: regular rhythm HEART SOUNDS: S1 normal heart sound present and S2 normal heart sound present GI: COMMON NORMALS: Normal to inspection, nondistended, normoactive bowel sounds present, Soft to palpation and non-tender PALPATION: Yes Soft to palpation Extremity: COMMON NORMALS: no joint enlargement and no pedal edema Neuro: COMMON NORMALS: patient oriented x3 and moves all extremities SENSORIUM/ORIENTATION: Yes alert Skin: COMMON NORMALS: no rashes or lesions noted GENERAL SKIN EXAM: no rashes or lesions noted Discharge Data Studies Completed and Pending Completed Studies During Hospitalization Category Date Time Status CT abdomen pelvis w con* [id number] Routine Cat Scan 10/28/23 07:48 Completed XR chest 1V portable [id number] Stat Exams 10/28/23 03:29 Completed Radiology Impressions Chest X-Ray 10/28/23 03:29 IMPRESSION: Faint hazy opacity in the left lung base may represent infiltrate, atelectasis, and/or small pleural effusion. Laboratory Results WBC 10.31 10^3/uL (3.29-11.43) 10/29/23 05:24 RBC 3.46 10^6/uL (3.85-5.65) L 10/29/23 05:24 Hgb 10.40 g/dL (11.27-16.99) L 10/29/23 05:24 Hct 31.1 % (37-53) L 10/29/23 05:24 MCV 89.9 fl (82-101) 10/29/23 05:24 MCH 30.1 pg (27-33) 10/29/23 05:24 MCHC 33.4 g/dL (30-55) 10/29/23 05:24 RDW 15.5 % (12.1-15.1) H 10/29/23 05:24 Plt Count 257 10^3/cmm (157-399) 10/29/23 05:24 MPV 9.4 fL (7.4-10.4) 10/29/23 05:24 Neut % (Auto) 72.5 % 10/29/23 05:24 Lymph % (Auto) 14.3 % 10/29/23 05:24 [place] % (Auto) 6.7 % 10/29/23 05:24 Eos % (Auto) 5.2 % 10/29/23 05:24 Baso % (Auto) 0.6 % 10/29/23 05:24 Neut # (Auto) 7.48 10^3/uL (1.8-7.7) 10/29/23 05:24 Lymph # (Auto) 1.5 10^3/uL (0.8-4.8) 10/29/23 05:24 [place] # (Auto) 0.7 10^3/uL (0.2-0.9) 10/29/23 05:24 Eos # (Auto) 0.5 10^3/uL (0.0-0.8) 10/29/23 05:24 Baso # (Auto) 0.1 10^3/uL (0.0-0.1) 10/29/23 05:24 Nucleated RBC % (auto) 0 % 10/29/23 05:24 Nucleated RBCs # 0.0 /100WBC 10/29/23 05:24 PT 13.10 SECONDS (12.1-14.9) 10/28/23 03:13 INR 0.96 (0.8-1.2) 10/28/23 03:13 Sodium 139 mmol/L (136-145) 10/29/23 05:24 Potassium 4.1 mmol/L (3.5-5.1) 10/29/23 05:24 Chloride 109 mmol/L (98-107) H 10/29/23 05:24 Carbon Dioxide 23 mmol/L (22-29) 10/29/23 05:24 Anion Gap 11.1 (5-19) 10/29/23 05:24 BUN 8 mg/dL (8-23) 10/29/23 05:24 Creatinine 0.5 mg/dL (0.7-1.2) L 10/29/23 05:24 GFR Calculation Not Reportable 10/29/23 05:24 Glucose 107 mg/dL (65-115) 10/29/23 05:24 Calculated Osmolality 287 mOsm/kg (285-295) 10/29/23 05:24 Calcium 7.8 mg/dL (8.5-10.5) L 10/29/23 05:24 Total Bilirubin 0.4 mg/dL (0.15-1.2) 10/29/23 05:24 AST 16 U/L (0-40) 10/29/23 05:24 ALT 18 U/L (0-41) 10/29/23 05:24 Alkaline Phosphatase 59 U/L (40-130) 10/29/23 05:24 NT-Pro-B Natriuret Pep < 36 pg/mL (0-450) 10/28/23 03:13 Total Protein 5.7 g/dL (6.6-8.7) L 10/29/23 05:24 Albumin 3.4 g/dL (3.5-5.2) L 10/29/23 05:24 Globulin 2.3 g/dL (1.3-4.6) 10/29/23 05:24 Urine Color Yellow (Yellow) 10/28/23 14:45 Urine Appearance Clear (CLEAR) 10/28/23 14:45 Urine pH 5 (5-7) 10/28/23 14:45 Ur Specific [place] 1.010 (1.005-1.030) 10/28/23 14:45 Urine Protein Neg (Negative) 10/28/23 14:45 Urine Glucose (UA) Norm (Normal) 10/28/23 14:45 Urine Ketones Negative (Negative) 10/28/23 14:45 Urine Blood Neg (Negative) 10/28/23 14:45 Urine Nitrate Negative (Negative) 10/28/23 14:45 Urine Bilirubin Neg (Negative) 10/28/23 14:45 Urine Urobilinogen Norm mg/dL (Negative) 10/28/23 14:45 Ur Leukocyte Esterase Negative (Negative) 10/28/23 14:45 Influenza Type A Ag Negative (Negative) 10/28/23 04:22 Influenza Type B Ag Negative (Negative) 10/28/23 04:22 SARS-CoV-2 Ag (Rapid) negative (Negative) 10/28/23 04:22 Blood Type O Positive 10/28/23 03:25 Rho(D) Type Rh positive 10/28/23 03:25 Antibody Screen Negative 10/28/23 03:25 Crossmatch See Detail 10/28/23 03:25 Vitals Last Vital Signs Temp 97.4 F L 10/29/23 09:46 Pulse 74 10/29/23 09:46 Resp 16 10/29/23 09:46 BP 145/81 10/29/23 09:46 Pulse Ox 95 10/29/23 09:46 O2 Del Method Room Air 10/29/23 08:23 Discharge Plan Discharge Patient Disposition: Home Condition: Stable Prescriptions: New cefdinir 300 mg capsule 300 mg PO BID 3 Days Qty: 6 0RF Continued glucosamine HCl 1,500 mg tablet 1,500 mg PO DAILY Rx Instructions: administer with a meal Centrum Silver Ultra Men's 300-600-300 mcg tablet 1 tab PO DAILY aspirin [Adult Low Dose Aspirin] 81 mg tablet,delayed release (DR/EC) 81 mg PO QPM prednisone 10 mg tablet 10 mg PO DAILY Qty: 5 0RF losartan 50 mg tablet 50 mg PO BID Qty: 60 12RF tadalafil [Cialis] 10 mg tablet 10 mg PO DAILY PRN (Reason: sexual activity) Qty: 30 11RF Flomax 0.4 mg capsule 0.4 mg PO DAILY Qty: 90 12RF omega-3 fatty acids-fish oil 684-1,200 mg Capsule,Delayed Release(Dr/Ec) 1 cap PO DAILY Discontinued ciprofloxacin HCl 250 mg tablet 250 mg PO BID Qty: 14 0RF meloxicam 15 mg tablet 15 mg PO QAM Discharge Orders: Discharge Order (Routine); Ordered 10/29/23 Ordered By: Donte Kinsey Referrals: Modesto Glass DO [Physician] - 2 weeks (We have notified your physician's clinic of the need for a follow-up appointment to be scheduled. If you have not heard from them within the next 2 business days, please call them directly. ) Jose Gonzalez MD [Primary Care Provider] - (We have notified your physician's clinic of the need for a follow-up appointment to be scheduled. If you have not heard from them within the next 2 business days, please call them directly. ) Patient Instructions: Cefdinir (By mouth) (Omnicef), Gastrointestinal Bleeding (GEN), Diverticulitis (GEN), Diverticulosis (ED), Diverticulitis Diet (ED), GI Discharge Instructions, Opioid Safety Activity Restrictions/Additional Instructions: Follow-up with surgery in office regarding recurrent lower GI bleeding. Seek medical attention in case of any recurrent or worsening symptoms. Follow-up with your primary doctor for reassessment of resolution of left lower lobe infiltrate, possible early pneumonia. Complete short antibiotic course with cefdinir. Discuss reimaging with your primary doctor. Discuss also referral for pulmonary function testing due to chronic dyspnea with exertion. Discharge Attestations Time Spent in Discharge Care*: greater than 30 min Quality Metrics Clinical Quality Measures [ No reported AMI, CVA or VTE this stay] Coding Level of Care Code 44510 Diagnoses Diverticulosis of colon with hemorrhage K57.31
== END 2023-10-29 11:07 | disposition home or self-care (01) | DRG 378 ==
LOC: ER 04:46 → ICU 04:58 → MEDSURG 10-29 06:16
PROVIDERS: Surgery; Admitting Provider Student in an Organized Health Care Education/Training Program; Emergency Provider Emergency Medicine; PCP Family Medicine; Visit Provider Internal Medicine
PROC: 0DJD8ZZ Inspection of Lower Intestinal Tract, Via Natural or Artificial Opening Endoscopic (ICD-10-PCS; CPT 45378; principal; 2023-10-29 08:00)
DX: K57.31 Diverticulosis of large intestine without perforation or abscess with bleeding (principal); D62 Acute posthemorrhagic anemia; J32.9 Chronic sinusitis, unspecified; I25.10 Atherosclerotic heart disease of native coronary artery without angina pectoris; R05.3 Chronic cough; N40.0 Benign prostatic hyperplasia without lower urinary tract symptoms; I10 Essential (primary) hypertension
CPT/HCPCS: 36415; 36430; 45378; 71045; 74177; 80053; 81003; 83880; 85014; 85018; 85025; 85610; 86850; 86900; 86920; 87426; 87804; 93005; 96374; 99285; J0696; J2704; J7030; P9016; Q9967

== ENCOUNTER → 2023-10-31 08:14 | Outpatient (BNVA) | payer MEDICARE, OTHER, SELFPAY | PROVIDERS: PCP Family Medicine; Visit Provider Otolaryngology | DX: R06.83 Snoring (principal); J34.89 Other specified disorders of nose and nasal sinuses; G47.33 Obstructive sleep apnea (adult) (pediatric); K13.79 Other lesions of oral mucosa; H91.93 Unspecified hearing loss, bilateral; H93.13 Tinnitus, bilateral | CPT/HCPCS: 99215 ==

== ENCOUNTER → 2023-11-14 10:14 | Outpatient (BNVA) | payer MEDICARE, OTHER, SELFPAY | PROVIDERS: PCP Family Medicine; Visit Provider Surgery | DX: K57.31 Diverticulosis of large intestine without perforation or abscess with bleeding | CPT/HCPCS: 99204 ==

== ENCOUNTER → 2023-11-20 13:11 | Outpatient (BNVA) | payer MEDICARE, OTHER, SELFPAY | PROVIDERS: PCP Family Medicine; Visit Provider Internal Medicine | DX: R94.39 Abnormal result of other cardiovascular function study (principal); I77.9 Disorder of arteries and arterioles, unspecified | CPT/HCPCS: 99214 ==

== ENCOUNTER 2023-12-10 08:16 | Outpatient (CLI) | payer MEDICARE, OTHER, SELFPAY | END 2023-12-10 08:17 | disposition home or self-care (01) | LOC: RT 08:16 | PROVIDERS: PCP Family Medicine; Visit Provider Internal Medicine | DX: R06.02 Shortness of breath (principal) | CPT/HCPCS: 94010; 94726; 94729 ==

== ENCOUNTER 2024-08-31 11:33 | Outpatient (CLI) | payer MEDICARE, OTHER, SELFPAY ==
--- NOTE | 2024-08-31 11:00 | CT_ITS ---
WS: [id number] CT chest wo con [id number] HISTORY: dyspnea TECHNIQUE: Axial imaging performed through the thorax. Coronal and sagittal reformats are submitted. All CT scans at [facility] use at least one of these dose optimization techniques: automated exposure control; mA and/or kV adjustment per patient size (includes targeted exams where dose is mat ched to clinical indication); or iterative reconstruction. CONTRAST: Omnipaque 350; 100 mL IV. DLP: 465.63 mGy.cm COMPARISON: 05/16/2023 Lungs and central airway: Lung volumes are slightly decreased. Peripheral interstitial fibrotic navarrete es are noted in the upper and lower lung davey. Greater area of fibrosis in the LEFT upper lobe. No mass or pneumonia. There are a few scattered granulomata. No honeycombing or bronchiectasis identifie d on this chest CT. Pleura: Normal. No pleural effusion. Heart and pericardium: Normal size heart with no pericardial effusion. Mediastinum and nick: No mediastinum or hilar adenopathy. Vessels: Mild atherosclerosis aorta. No aneurysm. Normal size pulmonary artery. Chest wall and lower neck: No soft tissue masses. Upper abdomen: Bilateral low-attenuation masses within the upper pole of each kidney consistent with cysts. No adrenal mass. Osseous structures: Thoracic spondylosis. CT/CT chest wo con [id number] IMPRESSION: 1. Very minimal progression of pulmonary fibrotic changes involving the upper and lower lungs. Suspect early changes of UIP. For further evaluation of UIP hi gh-resolution chest CT can be obtained if clinically thought necessary. This wo uld help determine if there is honeycombing or traction bronchiectasis. 2. No pneumonia or mass. 3. No adenopathy.
== END 2024-08-31 11:34 | disposition home or self-care (01) ==
LOC: RAD 11:33
PROVIDERS: PCP Family Medicine; Visit Provider Family Medicine
DX: J84.10 Pulmonary fibrosis, unspecified (principal); I70.0 Atherosclerosis of aorta; R93.421 Abnormal radiologic findings on diagnostic imaging of right kidney; R93.422 Abnormal radiologic findings on diagnostic imaging of left kidney; M47.894 Other spondylosis, thoracic region
CPT/HCPCS: 71250

== ENCOUNTER → 2024-10-06 10:06 | Outpatient (BNVA) | payer MEDICARE, OTHER, SELFPAY | PROVIDERS: PCP Family Medicine; Visit Provider Family Medicine | DX: L98.9 Disorder of the skin and subcutaneous tissue, unspecified (principal) | CPT/HCPCS: 88305 ==

== ENCOUNTER 2024-11-18 12:56 | Outpatient (CLI) | payer MEDICARE, OTHER, SELFPAY | END 2024-11-18 12:57 | LOC: RT 12-08 07:12 | PROVIDERS: PCP Family Medicine; Visit Provider Family Medicine | DX: I77.9 Disorder of arteries and arterioles, unspecified (principal); R94.39 Abnormal result of other cardiovascular function study | CPT/HCPCS: 99214 ==

== ENCOUNTER 2024-12-28 06:59 | Outpatient (CLI) | payer MEDICARE, OTHER, SELFPAY ==
--- NOTE | 2024-12-28 07:00 | USCV_ITS ---
Oj Haider Age: 79 Gender: M : 1945 Exam Date: 12/28/2024 07:17 Ordering Phys: Juanito Alvarez M.D ([email or web address]) Technologist: [email or web address] Exam Location: [facility] [place] Indication: SoB BP: 140 / 60 HR: 69 Rhythm: Sinus Technical Quality: Adequate MEASUREMENTS (Male / Female) Normal Values 2D ECHO LV Diastolic Diameter PLAX 5.4 cm 4.2 - 5.9 / 3.9 - 5.3 cm IVS Diastolic Thickness 1.0 cm 0.6 - 1.0 / 0.6 - 0.9 cm IVS Systolic Thickness 1.6 cm LVPW Diastolic Thickness 1.0 cm 0.6 - 1.0 / 0.6 - 0.9 cm LVPW Systolic Thickness 1.7 cm LVOT Diameter 2.1 cm LV Ejection Fraction 2D Teich 61.5 % LV Ejection Fraction MOD 4C 61.6 % LV Ejection Fraction MOD 2C 61.6 % LV Ejection Fraction 2C AL 64.1 % LA Diameter 4.2 cm RA Systolic Volume 4C AL 34.1 ml RA Systolic Volume 4C MOD 35.0 ml LA Sys Volume AL 47.2 cm cubed LA Sys Volume Index AL 24.2 cm cubed/m squared Aorta at Sinotubular Diameter 3.2 cm IVC Diameter 1.5 cm M-MODE LA Ao Ratio MM 1.0 AV Cusp Separation MM 1.7 cm DOPPLER AV Peak Velocity 111.0 cm/s LVOT Peak Velocity 95.0 cm/s AV Area Cont Eq vti 3.0 cm squared AV Area Cont Eq pk 2.9 cm squared MV Peak Velocity 102.0 cm/s MV Area PHT 5.5 cm squared Mitral E to A Ratio 0.9 TV Peak E Velocity 71.0 cm/s PV Peak Velocity 125.0 cm/s FINDINGS Left Ventricle Left ventricle is normal size. LV systolic function is normal with EF of 60-65%. No regional wall motion abnormalities are seen. Right Ventricle Normal in size and function Right Atrium Normal in size Left Atrium Normal in size Mitral Valve Structurally normal mitral valve. Mild mitral regurgitation. Aortic Valve Structurally normal aortic valve. No significant stenosis. Mild aortic regurgitation Tricuspid Valve Insufficient TR jet to calculate RVSP Pulmonic Valve Not well visualized Pericardium Normal Aorta Normal in size IVC Appears to be normal CONCLUSIONS LV systolic function is normal with EF of 60-65%. Mild mitral regurgitation. Mild aortic regurgitation Compared to prior echocardiogram from 2021, no significant changes are seen Juanito Alvarez MD (Electronically Signed) Final Date: 03 Jan 2025 13:22 S
== END 2024-12-28 07:00 | disposition home or self-care (01) ==
PROVIDERS: PCP Family Medicine; Visit Provider Internal Medicine
DX: R06.02 Shortness of breath (principal); I34.0 Nonrheumatic mitral (valve) insufficiency; I35.0 Nonrheumatic aortic (valve) stenosis
CPT/HCPCS: 93306

== ENCOUNTER 2024-12-30 09:17 | Outpatient (CLI) | payer MEDICARE, OTHER, SELFPAY ==
[2024-12-30 09:48] VITALS: PULSE 78; RESP 18; O2SAT 97
[2024-12-30] MEDS: albuterol 2.5 mg/3 mL Neb INHALATION (09:48)
== END 2024-12-30 09:18 | disposition home or self-care (01) ==
PROVIDERS: PCP Family Medicine; Visit Provider Family Medicine
DX: J84.10 Pulmonary fibrosis, unspecified (principal); R94.2 Abnormal results of pulmonary function studies
CPT/HCPCS: 94060; 94726; 94729